=== PATIENT | female | born 1980 | race American Indian/Alaskan Native ===

== ENCOUNTER 2017-10-24 08:07 | Inpatient (IN) | payer OTHER ==
[2017-10-24 08:50] LABS: Basophils # (Auto) 0.1 K/mm3 (0.0-0.1); Basophils % (Auto) 0.9 % (0.0-1.8); Eosinophils # (Auto) 0.1 K/mm3 (0.0-0.4); Eosinophils % (Auto) 1.2 % (0.0-4.3); Hematocrit 38.6 % (30.3-42.9); Hemoglobin 13.6 gm/dl (10.1-14.3); Lymphocytes # (Auto) 1.6 K/mm3 (1.2-5.4); Lymphocytes % (Auto) 17.8 % (13.4-35.0); Mean Corpuscular HGB Conc 35 % (30-34); Mean Corpuscular Hemoglobin 36 pg (28-32); Mean Corpuscular Volume 102 fl (79-97); Monocytes # (Auto) 0.4 K/mm3 (0.0-0.8); Platelet Count 285 K/mm3 (140-440); Red Blood Count 3.78 M/mm3 (3.65-5.03); Red Cell Distribution Width 15.1 % (13.2-15.2)
[2017-10-24 09:10] LABS: Albumin 3.9 g/dL (3.9-5); BUN/Creatinine Ratio 13; Blood Urea Nitrogen 5 mg/dL (7-17); Calcium 9.1 mg/dL (8.4-10.2); Hemolysis Index 393
[2017-10-24 09:32] LABS: Alanine Aminotransferase < 5 units/L (7-56); Lipase 386 units/L (13-60)
[2017-10-24 10:07] LABS: Bacteria,Urine 1+ /HPF (Negative); Bilirubin,Urine NEG (Negative); Blood,Urine NEG (Negative); Color,Urine Amber (Yellow); Mucus,Urine 3+ /HPF; Urobilinogen,Urine < 2.0 mg/dL (<2.0)
[2017-10-24 10:08] LABS: HCG Qualitative,Urine Negative (Negative); Protein,Urine >500 mg/dL (Negative)
--- NOTE | 2017-10-24 10:32 | XRay Report ---
Chest 2 views: History: Shortness of breath, chest pain. Findings: Normal cardiomediastinal silhouette. Trachea is midline. No consolidation, pneumothorax or pleural effusion. Impression: No acute cardiopulmonary findings
[2017-10-24] MEDS ORDERED: NACL 0.9% 1000 ML 1,000 ML IV ONE (10:49)
[2017-10-24] MEDS ORDERED: TORADOL IV ONE (10:49)
[2017-10-24] MEDS ORDERED: ZOFRAN IV ONE (10:49)
[2017-10-24] MEDS ORDERED: NACL 0.9% 500 ML 500 ML IV ONE (10:49)
[2017-10-24] MEDS ORDERED: DILAUDID IV ONE ×2 (10:49→12:41)
--- NOTE | 2017-10-24 10:49 | Emergency Department Report ---
ED Abdominal Pain HPI - General Chief Complaint: Dyspnea/Respdistress Stated Complaint: CHEST PAIN WITH TIGHTNESS Time Seen by Provider: 10/24/17 10:32 Source: patient Mode of arrival: Ambulatory Limitations: No Limitations - History of Present Illness Initial Comments: Patient is a 37-year-old female presenting with epigastric pain. Patient states that the pain is 7 out of 10 in severity and feels like a tight sensation around her upper abdomen and radiates to her back. Patient has had nausea vomiting associated with this pain. Patient also has had several episodes of diarrhea as well. Patient states has been no blood in her emesis or stools. Patient denies any fevers chills at this time. Patient states she has no history of biliary colic, but is a drinker. These are risk factors for pancreatitis. Patient states she drinks anywhere from 3-6 beers daily. - Related Data Allergies Allergy/AdvReac Type Severity Reaction Status Date / Time Fish Containing Products Allergy Hives Verified 10/24/17 08:26 ED Review of Systems ROS: Stated complaint: CHEST PAIN WITH TIGHTNESS Other details as noted in HPI Comment: All other systems reviewed and negative ED Past Medical Hx - Past Medical History Previous Medical History?: Yes Additional medical history: Vaginal delivery x 2 - Surgical History Past Surgical History?: Yes Additional Surgical History: x 2 - Social History Smoking Status: Current Every Day Smoker Substance Use Type: Alcohol, Non Opiate Pain ED Physical Exam - General Limitations: No Limitations General appearance: alert, in no apparent distress - Head Head exam: Present: atraumatic, normocephalic - Eye Eye exam: Present: normal appearance - ENT ENT exam: Present: mucous membranes moist - Neck Neck exam: Present: normal inspection - Respiratory Respiratory exam: Present: normal lung sounds bilaterally. Absent: respiratory distress, wheezes, rales, rhonchi - Cardiovascular Cardiovascular Exam: Present: regular rate, normal rhythm. Absent: systolic murmur, diastolic murmur, rubs, gallop - GI/Abdominal GI/Abdominal exam: Present: soft, tenderness (epigastric tenderness), normal bowel sounds. Absent: distended, guarding, rebound, rigid - Extremities Exam Extremities exam: Present: normal inspection - Back Exam Back exam: Present: normal inspection - Neurological Exam Neurological exam: Present: alert, oriented X3 - Psychiatric Psychiatric exam: Present: normal affect, normal mood - Skin Skin exam: Present: warm, dry, intact, normal color. Absent: rash ED Course Vital Signs 10/24/17 10/24/17 08:26 11:00 Temperature 98.8 F Pulse Rate 107 H Respiratory 20 16 Rate Blood Pressure 146/90 O2 Sat by Pulse 98 Oximetry ED Medical Decision Making - Lab Data Result diagrams: 10/24/17 08:37 10/24/17 08:37 Lab Results 10/24/17 10/24/17 10/24/17 Range/Units 08:37 08:37 09:25 WBC 8.8 (4.5-11.0) K/mm3 RBC 3.78 (3.65-5.03) M/mm3 Hgb 13.6 (10.1-14.3) gm/dl Hct 38.6 (30.3-42.9) % MCV 102 H (79-97) fl MCH 36 H (28-32) pg MCHC 35 H (30-34) % RDW 15.1 (13.2-15.2) % Plt Count 285 (140-440) K/mm3 Lymph % (Auto) 17.8 (13.4-35.0) % [place] % (Auto) 5.0 (0.0-7.3) % Eos % (Auto) 1.2 (0.0-4.3) % Baso % (Auto) 0.9 (0.0-1.8) % Lymph # 1.6 (1.2-5.4) K/mm3 [place] # 0.4 (0.0-0.8) K/mm3 Eos # 0.1 (0.0-0.4) K/mm3 Baso # 0.1 (0.0-0.1) K/mm3 Seg Neutrophils % 75.1 H (40.0-70.0) % Seg Neutrophils # 6.6 (1.8-7.7) K/mm3 Sodium 126 L (137-145) mmol/L Potassium 5.4 H (3.6-5.0) mmol/L Chloride 87.8 L (98-107) mmol/L Carbon Dioxide 22 (22-30) mmol/L Anion Gap 22 mmol/L BUN 5 L (7-17) mg/dL Creatinine 0.4 L (0.7-1.2) mg/dL Estimated GFR > 60 ml/min BUN/Creatinine Ratio 13 % Glucose 136 H (65-100) mg/dL Calcium 9.1 (8.4-10.2) mg/dL Total Bilirubin 0.90 (0.1-1.2) mg/dL AST 102 H (5-40) units/L ALT < 5 L (7-56) units/L Alkaline Phosphatase 68 (35-129) units/L Total Protein 8.3 H (6.3-8.2) g/dL Albumin 3.9 (3.9-5) g/dL Albumin/Globulin Ratio 0.9 % Lipase 386 H (13-60) units/L Urine Color Janie (Yellow) Urine Turbidity Cloudy (Clear) Urine pH 5.0 (5.0-7.0) Ur Specific [place] 1.032 H (1.003-1.030) Urine Protein >500 (Negative) mg/dL Urine Glucose (UA) Neg (Negative) mg/dL Urine Ketones Neg (Negative) mg/dL Urine Blood Neg (Negative) Urine Nitrite Neg (Negative) Urine Bilirubin Neg (Negative) Urine Urobilinogen < 2.0 (<2.0) mg/dL Ur Leukocyte Esterase Mod (Negative) Urine WBC (Auto) 79.0 H (0.0-6.0) /HPF Urine RBC (Auto) 5.0 (0.0-6.0) /HPF U Epithel Cells (Auto) 18.0 H (0-13.0) /HPF Urine Bacteria (Auto) 1+ (Negative) /HPF Urine Mucus 3+ /HPF Urine HCG, Qual Negative (Negative) - Medical Decision Making Patient was given IV fluids and pain meds. Patient be admitted to the hospitalist service under Dr. Delatorre. ET of abdomen and pelvis is pending at the time of admission. Critical care attestation.: If time is entered above; I have spent that time in minutes in the direct care of this critically ill patient, excluding procedure time. ED Disposition Clinical Impression: Acute pancreatitis Qualifiers: Pancreatitis type: unspecified pancreatitis type Acute pancreatitis complication: no infection or necrosis Qualified Code(s): K85.90 - Acute pancreatitis without necrosis or infection, unspecified Disposition: DC- TO HOME OR SELFCARE Is pt being admited?: Yes Does the pt Need Aspirin: No Condition: Stable Referrals: PRIMARY CARE, [Primary Care Provider] - 3-5 Days
--- NOTE | 2017-10-24 13:07 | Cat Scan Report ---
FINAL REPORT EXAM: CT ABDOMEN PELVIS W CON HISTORY: elevated lipase, abd pain TECHNIQUE: CT examination of the ABDOMEN after IV contrast CT examination of the PELVIS after IV contrast PRIORS: None. FINDINGS: 5.7 mm pulmonary nodule in the right lower lobe laterally, series 2, image 4. 4.1 mm pulmonary nodule in the right lower lobe base along the diaphragm, series 2, image 22 3.8 mm pulmonary nodule in the posteromedial left lower lobe subpleural region, series 2, image 31. Nonspecific diffusely decreased density of liver parenchyma may reflect fatty infiltration. No visualized focal liver lesion. Normal-appearing gallbladder, adrenals, and spleen. Intact normal caliber abdominal aorta and IVC. Normal-appearing kidneys and visible ureters. Moderate fluid and fat stranding is noted adjacent to pancreatic uncinate process and head. Slight heterogeneous enhancement is noted in this region of the pancreas. Findings are most compatible with acute pancreatitis. Slight retroperitoneal free fluid posterior to the pancreas and in the right upper quadrant. Pancreatic parenchymal body and tail appear normal. No definite visible pancreatic mass. No definite pancreatic ductal dilatation or calculus. Small fat containing umbilical hernia. No retroperitoneal adenopathy. No mesenteric mass. Slight thickening of the descending and transverse duodenum likely reactive from adjacent inflammation. No small bowel distention in the abdomen and pelvis. Slight pelvic free fluid may be reactive related to suggestion pancreatitis. Normal-appearing uterus and adnexa. Dominant follicle in right ovary. No definite urinary bladder or rectal abnormality. Normal-appearing sigmoid colon. No evidence of free air or colonic distention. Normal-appearing cecum and terminal ileum. Appendix not visible. No pericecal inflammation. Nonspecific nodule in the right parasagittal perineum measures 3.5 cm. This may be solid or complex cyst. It may be palpable clinically. IMPRESSION: Bilateral pulmonary nodules. Recommend followup chest CT to fully evaluate both lungs and exclude other lung nodules Nonspecific 3.5 cm nodule in the right parasagittal perineum may be solid or complex cyst. It may be palpable clinically. Correlate with clinical exam Findings most compatible with acute pancreatitis. Duodenal mural thickening is likely reactive from adjacent inflammatory change. Slight pelvic free fluid is likely reactive Small fat containing umbilical hernia
[2017-10-24] MEDS: NACL 0.9% 1000 ML 1,000 ML IV SCH ×2 (13:39→21:29)
[2017-10-24] MEDS: MORPHINE IV PRN ×3 (14:53→21:20)
[2017-10-24] MEDS ORDERED: RESTORIL PO ONE (23:22)
[2017-10-25] MEDS ORDERED: TYLENOL PO PRN (00:13)
--- NOTE | 2017-10-25 00:13 | History and Physical Report ---
History of Present Illness Date of examination: 10/24/17 Date of admission: 10/24/17 12:44 Chief complaint: Chief complaint: Severe abdominal pain for 2 days History of present illness: History of Present Illnesss: Patient is a 37-year-old female presenting with epigastric pain. Patient states that the pain is 7 out of 10 in severity and feels like a tight sensation around her upper abdomen and radiates to her back. Patient has had nausea vomiting associated with this pain. Patient vomited about 7 times each last few days. Patient also has had several episodes of diarrhea as well. Patient states has been no blood in her emesis or stools. Patient denies any fevers chills at this time. Patient states she has no history of biliary colic , but is a drinker. These are risk factors for pancreatitis. Patient states she drinks anywhere from 3-6 beers daily. Past Medical History Previous Medical History?: Yes Additional medical history: Vaginal delivery x 2 - Surgical History Past Surgical History?: Yes Additional Surgical History: x 2 - Social History Smoking Status: Current Every Day Smoker Substance Use Type: Alcohol, Non Opiate Pain Family history Hypertension Review of Systems ROS: Stated complaint: Abdominal pain with tightness Other details as noted in HPI Comment: All other systems reviewed and negative Medications and Allergies Allergies Allergy/AdvReac Type Severity Reaction Status Date / Time Fish Containing Products Allergy Hives Verified 10/24/17 08:26 Home Medications Medication Instructions Recorded Confirmed Last Taken Type No Known Home Medications [No 10/24/17 10/24/17 Unknown History Reported Home Medications] Active Meds: Active Medications Sodium Chloride (Nacl 0.9% 1000 Ml) 1,000 mls @ 125 mls/hr IV DIRECT RUSSELL Last Admin: 10/24/17 21:29 Dose: 125 mls/hr Morphine Sulfate (Morphine) 4 mg IV Q3H PRN PRN Reason: Pain, Moderate (4-6) Last Admin: 10/24/17 21:20 Dose: 4 mg Exam - Constitutional Vitals: Temp Pulse Resp BP Pulse Ox 99.6 F 104 H 20 132/83 98 10/24/17 21:21 10/24/17 21:21 10/24/17 21:50 10/24/17 21:21 10/24/17 21:21 General appearance: Present: no acute distress, well-nourished - EENT Eyes: Present: PERRL ENT: hearing intact, clear oral mucosa - Neck Neck: Present: supple, normal ROM - Respiratory Respiratory effort: normal Respiratory: bilateral: CTA - Cardiovascular Heart rate: 80 Rhythm: regular Heart Sounds: Present: S1 & S2. Absent: rub, click - Extremities Extremities: no ischemia, pulses intact, pulses symmetrical, No edema Peripheral Pulses: within normal limits - Abdominal General gastrointestinal: Present: soft, non-tender, non-distended, normal bowel sounds Localized gastrointestinal: tender: diffuse, guarding: diffuse, rebound: diffuse Female genitourinary: Present: normal - Rectal Rectal Exam: deferred - Integumentary Integumentary: Present: clear, warm, dry - Musculoskeletal Musculoskeletal: gait normal, strength equal bilaterally - Psychiatric Psychiatric: appropriate mood/affect, intact judgment & insight - Neurologic Neurologic: CNII-XII intact, moves all extremities - Allied Health Allied health notes reviewed: nursing, case management Results - Labs CBC & Chem 7: 10/24/17 08:37 10/24/17 08:37 Labs: Laboratory Last Values WBC 8.8 K/mm3 (4.5-11.0) 10/24/17 08:37 RBC 3.78 M/mm3 (3.65-5.03) 10/24/17 08:37 Hgb 13.6 gm/dl (10.1-14.3) 10/24/17 08:37 Hct 38.6 % (30.3-42.9) 10/24/17 08:37 MCV 102 fl (79-97) H 10/24/17 08:37 MCH 36 pg (28-32) H 10/24/17 08:37 MCHC 35 % (30-34) H 10/24/17 08:37 RDW 15.1 % (13.2-15.2) 10/24/17 08:37 Plt Count 285 K/mm3 (140-440) 10/24/17 08:37 Lymph % (Auto) 17.8 % (13.4-35.0) 10/24/17 08:37 [place] % (Auto) 5.0 % (0.0-7.3) 10/24/17 08:37 Eos % (Auto) 1.2 % (0.0-4.3) 10/24/17 08:37 Baso % (Auto) 0.9 % (0.0-1.8) 10/24/17 08:37 Lymph # 1.6 K/mm3 (1.2-5.4) 10/24/17 08:37 [place] # 0.4 K/mm3 (0.0-0.8) 10/24/17 08:37 Eos # 0.1 K/mm3 (0.0-0.4) 10/24/17 08:37 Baso # 0.1 K/mm3 (0.0-0.1) 10/24/17 08:37 Seg Neutrophils % 75.1 % (40.0-70.0) H 10/24/17 08:37 Seg Neutrophils # 6.6 K/mm3 (1.8-7.7) 10/24/17 08:37 Sodium 126 mmol/L (137-145) L 10/24/17 08:37 Potassium 5.4 mmol/L (3.6-5.0) H 10/24/17 08:37 Chloride 87.8 mmol/L (98-107) L 10/24/17 08:37 Carbon Dioxide 22 mmol/L (22-30) 10/24/17 08:37 Anion Gap 22 mmol/L 10/24/17 08:37 BUN 5 mg/dL (7-17) L 10/24/17 08:37 Creatinine 0.4 mg/dL (0.7-1.2) L 10/24/17 08:37 Estimated GFR > 60 ml/min 10/24/17 08:37 BUN/Creatinine Ratio 13 % 10/24/17 08:37 Glucose 136 mg/dL (65-100) H 10/24/17 08:37 Calcium 9.1 mg/dL (8.4-10.2) 10/24/17 08:37 Total Bilirubin 0.90 mg/dL (0.1-1.2) 10/24/17 08:37 AST 102 units/L (5-40) H 10/24/17 08:37 ALT < 5 units/L (7-56) L 10/24/17 08:37 Alkaline Phosphatase 68 units/L (35-129) 10/24/17 08:37 Total Protein 8.3 g/dL (6.3-8.2) H 10/24/17 08:37 Albumin 3.9 g/dL (3.9-5) 10/24/17 08:37 Albumin/Globulin Ratio 0.9 % 10/24/17 08:37 Lipase 386 units/L (13-60) H 10/24/17 08:37 Urine Color Janie (Yellow) 10/24/17 09:25 Urine Turbidity Cloudy (Clear) 10/24/17 09:25 Urine pH 5.0 (5.0-7.0) 10/24/17 09:25 Ur Specific [place] 1.032 (1.003-1.030) H 10/24/17 09:25 Urine Protein >500 mg/dL (Negative) 10/24/17 09:25 Urine Glucose (UA) Neg mg/dL (Negative) 10/24/17:25 Urine Ketones Neg mg/dL (Negative) 10/24/17 09:25 Urine Blood Neg (Negative) 10/24/17 09:25 Urine Nitrite Neg (Negative) 10/24/17 09:25 Urine Bilirubin Neg (Negative) 10/24/17 09:25 Urine Urobilinogen < 2.0 mg/dL (<2.0) 10/24/17 09:25 Ur Leukocyte Esterase Mod (Negative) 10/24/17 09:25 Urine WBC (Auto) 79.0 /HPF (0.0-6.0) H 10/24/17 09:25 Urine RBC (Auto) 5.0 /HPF (0.0-6.0) 10/24/17 09:25 U Epithel Cells (Auto) 18.0 /HPF (0-13.0) H 10/24/17 09:25 Urine Bacteria (Auto) 1+ /HPF (Negative) 10/24/17 09:25 Urine Mucus 3+ /HPF 10/24/17 09:25 Urine HCG, Qual Negative (Negative) 10/24/17 09:25 - Imaging and Cardiology CT scan - abdomen: report reviewed Imaging and Cardiology: IMPRESSION: Bilateral pulmonary nodules. Recommend followup chest CT to fully evaluate both lungs and exclude other lung nodules Nonspecific 3.5 cm nodule in the right parasagittal perineum may be solid or complex cyst. It may be palpable clinically. Correlate with clinical exam Findings most compatible with acute pancreatitis. Duodenal mural thickening is likely reactive from adjacent inflammatory change. Slight pelvic free fluid is likely reactive Small fat containing umbilical hernia Assessment and Plan Advance Directives: Yes (full code) VTE prophylaxis?: Chemical Plan of care discussed with patient/family: Yes - Patient Problems (1) Acute pancreatitis Current Visit: Yes Status: Acute Qualifiers: Pancreatitis type: unspecified pancreatitis type Acute pancreatitis complication: no infection or necrosis Qualified Code(s): K85.90 - Acute pancreatitis without necrosis or infection, unspecified Plan to address problem: Possibly alcohol induced Will keep nothing by mouth IV morphine every 4 when necessary Pain management (2) Dehydration Current Visit: Yes Status: Acute Plan to address problem: Secondary to vomiting ---IV fluids for now (3) Hyponatremia Current Visit: Yes Status: Acute Plan to address problem: IV fluids D5 normal saline for now Hyponatremia probably secondary to vomiting (4) Hyperkalemia Current Visit: Yes Status: Acute Plan to address problem: Mild IV D5 normal saline for now Kayexalate etc. not given (5) Urinary tract infection Current Visit: Yes Status: Acute Qualifiers: Urinary tract infection type: acute cystitis Plan to address problem: IV Rocephin initiated (6) DVT prophylaxis Current Visit: Yes Status: Acute Plan to address problem: Heparin subcutaneous GI prophylaxis famotidine IV
[2017-10-25] MEDS: MORPHINE IV PRN ×5 (02:15→21:38)
[2017-10-25] MEDS: D5NS 1,000 ML IV SCH ×2 (02:16→16:40)
[2017-10-25] MEDS: SODIUM CHLORIDE FLUSH SYRINGE 10 ML IV PRN (02:31)
[2017-10-25] MEDS: PEPCID IV SCH ×3 (02:31→21:37)
[2017-10-25 09:43] LABS: Hematocrit 32.2 % (30.3-42.9); Hemoglobin 11.6 gm/dl (10.1-14.3); Mean Corpuscular HGB Conc 36 % (30-34); Mean Corpuscular Hemoglobin 37 pg (28-32); Mean Corpuscular Volume 102 fl (79-97); Platelet Count 187 K/mm3 (140-440); Red Blood Count 3.17 M/mm3 (3.65-5.03); Red Cell Distribution Width 14.4 % (13.2-15.2)
[2017-10-25 09:58] LABS: BUN/Creatinine Ratio 6; Blood Urea Nitrogen 3 mg/dL (7-17); Calcium 7.4 mg/dL (8.4-10.2); Hemolysis Index 10
[2017-10-25] MEDS: cefTRIAXone 2 GM in NACL 0.9% 20 ML IV SCH (10:26)
[2017-10-25] MEDS: SODIUM CHLORIDE FLUSH SYRINGE 10 ML IV SCH ×2 (10:27→22:17)
--- NOTE | 2017-10-25 10:33 | Ultrasound Report ---
ULTRASOUND ABDOMEN LIMITED: TECHNIQUE: Transabdominal ultrasound with color Doppler interrogation. HISTORY: Pancreatitis, rule out gallstones. COMPARISON: CT abdomen pelvis with contrast performed 10/24. FINDINGS: LIVER: There is mild diffuse fatty infiltration throughout the liver. No focal liver mass. BILIARY SYSTEM: No evidence for shadowing gallstones or biliary dilatation. Trace gallbladder sludge is identified. PANCREAS: The visualized pancreas is within normal limits. The tail was obscured. RIGHT KIDNEY: Normal. PROXIMAL AORTA: Normal. ASCITES: Trace ascites. IMPRESSION: Trace gallbladder sludge is suspected. No gallstones are identified. Fatty infiltration of the liver. Trace ascites.
[2017-10-25] MEDS: ZOFRAN IV PRN (10:40)
[2017-10-25] MEDS: NACL 0.9% 1000 ML 1,000 ML IV SCH (10:40)
--- NOTE | 2017-10-25 11:49 | Consultation ---
History of Present Illness Consult date: 10/25/17 Requesting physician: HOWARD BANERJEE Chief complaint: abd pain - History of present illness History of present illness: 37 yo F with no PMhx presents to ER with c/o 1 week of epigastric abd pain. The pain radiates from the epigastrum to b/l Upper quadrants and to the back. She has tried tylenol for the pain but this did not help. The pain has gradually gotten worse and so she came to the ER. This has been associated with multiple episodes of nonbloody/nonbilious emesis. Also c/o diarrhea. She has never had pain like this before. She denies f/c, cp ,sob, dysuria. She denies sick contacts, recent travel, any new medications, or eating anything out of the ordinary. She does admit to drinking a 6 pack of beer per day with her and wine occasionally. Past History Past Medical History: No medical history Past Surgical History: appendectomy, (x2), Other (cyst removal) Social history: alcohol abuse (6 pack of beer per day, occassional wine), full code. denies: smoking, IV drug use Family history: cancer, diabetes Medications and Allergies Allergies Allergy/AdvReac Type Severity Reaction Status Date / Time Fish Containing Products Allergy Hives Verified 10/24/17 08:26 Home Medications Medication Instructions Recorded Confirmed Last Taken Type No Known Home Medications [No 10/24/17 10/24/17 Unknown History Reported Home Medications] Active Meds: Active Medications Acetaminophen (Tylenol) 650 mg PO Q4H PRN PRN Reason: Pain MILD(1-3)/Fever >100.5/CM Famotidine (Pepcid) 20 mg IV BID RUSSELL Last Admin: 10/25/17 10:27 Dose: 20 mg Sodium Chloride (Nacl 0.9% 1000 Ml) 1,000 mls @ 125 mls/hr IV DIRECT RUSSELL Last Admin: 10/25/17 10:40 Dose: 125 mls/hr Dextrose/Sodium Chloride (D5ns) 1,000 mls @ 150 mls/hr IV DIRECT RUSSELL Last Admin: 10/25/17 02:16 Dose: 100 mls/hr Ceftriaxone Sodium 2 gm/ (Sodium Chloride) 20 mls @ 20 mls/10 min IV Q24HR RUSSELL ; Protocol Last Admin: 10/25/17 10:26 Dose: 20 mls/10 min Morphine Sulfate (Morphine) 4 mg IV Q4H PRN PRN Reason: Pain, Moderate (4-6) Last Admin: 10/25/17 07:36 Dose: 4 mg Ondansetron HCl (Zofran) 4 mg IV Q8H PRN PRN Reason: Nausea And Vomiting Last Admin: 10/25/17 10:40 Dose: 4 mg Sodium Chloride (Sodium Chloride Flush Syringe 10 Ml) 10 ml IV BID RUSSELL Last Admin: 10/25/17 10:27 Dose: 10 ml Sodium Chloride (Sodium Chloride Flush Syringe 10 Ml) 10 ml IV PRN PRN PRN Reason: LINE FLUSH Last Admin: 10/25/17 02:31 Dose: 10 ml Review of Systems All systems: negative (10 point ROS performed and negative except for that listed in HPI) Exam Vital Signs Temp Pulse Resp BP Pulse Ox 98.8 F 107 H 20 146/90 98 10/24/17 08:26 10/24/17 08:26 10/24/17 08:26 10/24/17 08:26 10/24/17 08:26 Narrative exam: Gen: AAOx3. NAD ENT: no scleral icterus or conjunctival pallor CV: S1, S2+ Resp: even and unlabored Abd: soft, ND, + TTP in epigastrum, RUQ, periumbilical. No r/r/g Ext: no c/c/e Results - Labs 10/25/17 09:20 10/25/17 09:20 Abnormal lab results 10/25/17 10/25/17 Range/Units 09:20 09:20 RBC 3.17 L (3.65-5.03) M/mm3 MCV 102 H (79-97) fl MCH 37 H (28-32) pg MCHC 36 H (30-34) % Sodium 136 L D (137-145) mmol/L Potassium 3.1 L D (3.6-5.0) mmol/L BUN 3 L (7-17) mg/dL Creatinine 0.5 L (0.7-1.2) mg/dL Glucose 111 H (65-100) mg/dL Calcium 7.4 L D (8.4-10.2) mg/dL Diabetes panel 10/25/17 10/25/17 Range/Units 00:28 09:20 Sodium 136 L D (137-145) mmol/L Potassium 3.1 L D (3.6-5.0) mmol/L Chloride 99.5 (98-107) mmol/L Carbon Dioxide 24 (22-30) mmol/L BUN 3 L (7-17) mg/dL Creatinine 0.5 L (0.7-1.2) mg/dL Glucose 111 H (65-100) mg/dL Hemoglobin A1c 5.1 (4-6) % Calcium 7.4 L D (8.4-10.2) mg/dL Calcium panel 10/25/17 Range/Units 09:20 Calcium 7.4 L D (8.4-10.2) mg/dL Pituitary panel 10/25/17 Range/Units 09:20 Sodium 136 L D (137-145) mmol/L Potassium 3.1 L D (3.6-5.0) mmol/L Chloride 99.5 (98-107) mmol/L Carbon Dioxide 24 (22-30) mmol/L BUN 3 L (7-17) mg/dL Creatinine 0.5 L (0.7-1.2) mg/dL Glucose 111 H (65-100) mg/dL Calcium 7.4 L D (8.4-10.2) mg/dL Adrenal panel 10/25/17 Range/Units 09:20 Sodium 136 L D (137-145) mmol/L Potassium 3.1 L D (3.6-5.0) mmol/L Chloride 99.5 (98-107) mmol/L Carbon Dioxide 24 (22-30) mmol/L BUN 3 L (7-17) mg/dL Creatinine 0.5 L (0.7-1.2) mg/dL Glucose 111 H (65-100) mg/dL Calcium 7.4 L D (8.4-10.2) mg/dL Assessment and Plan 37 yo F with acute pancreatitis likely etoh induced 1. Abd u/s reviewed - no gallstones 2. prn pain control 3. prn nausea control 4. IVF - increase to 150cc/hr 5. trend lipase, amylase 6. on abx presumably for UTI, does not need abx for pancreatitis 7. NPO for now 8. serial abd exams Thank you for this consultation, please call with questions or concerns.
--- NOTE | 2017-10-25 14:13 | Progress Note ---
Assessment and Plan Assessment and plan: Acute pancreatitis. NPO, Morphine UTI. 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 Physical - Physical exam Narrative exam: General:Not in acute distress, lying in bed,obese HEENT:Normocephalic, atraumatic Neck:supple,no JVD Lungs: Clear to auscultation, no rales, no wheeze Heart:S1 and S2 regular, no murmurs, rubs or gallop Abd: soft, non tender,non distended, normal bowel sounds Ext:no edema, no clubbing or cyanosis Neuro:Awake,alert,oriented x 3, moves all extremities, Psych:normal mood - Constitutional Vitals: Temp Pulse Resp BP Pulse Ox 99.6 F 104 H 20 132/83 98 10/24/17 21:21 10/24/17 21:21 10/25/17 07:36 10/24/17 21:21 10/24/17 21:21 General appearance: Present: no acute distress, well-nourished Results - Labs CBC & Chem 7: 10/26/17 04:47 10/26/17 04:47 Labs: Laboratory Last Values WBC 6.6 K/mm3 (4.5-11.0) 10/25/17 09:20 RBC 3.17 M/mm3 (3.65-5.03) L 10/25/17 09:20 Hgb 11.6 gm/dl (10.1-14.3) 10/25/17 09:20 Hct 32.2 % (30.3-42.9) D 10/25/17 09:20 MCV 102 fl (79-97) H 10/25/17 09:20 MCH 37 pg (28-32) H 10/25/17 09:20 MCHC 36 % (30-34) H 10/25/17 09:20 RDW 14.4 % (13.2-15.2) 10/25/17 09:20 Plt Count 187 K/mm3 (140-440) 10/25/17 09:20 Lymph % (Auto) 17.8 % (13.4-35.0) 10/24/17 08:37 [place] % (Auto) 5.0 % (0.0-7.3) 10/24/17 08:37 Eos % (Auto) 1.2 % (0.0-4.3) 10/24/17 08:37 Baso % (Auto) 0.9 % (0.0-1.8) 10/24/17 08:37 Lymph # 1.6 K/mm3 (1.2-5.4) 10/24/17 08:37 [place] # 0.4 K/mm3 (0.0-0.8) 10/24/17 08:37 Eos # 0.1 K/mm3 (0.0-0.4) 10/24/17 08:37 Baso # 0.1 K/mm3 (0.0-0.1) 10/24/17 08:37 Seg Neutrophils % 75.1 % (40.0-70.0) H 10/24/17 08:37 Seg Neutrophils # 6.6 K/mm3 (1.8-7.7) 10/24/17 08:37 Sodium 136 mmol/L (137-145) L D 10/25/17 09:20 Potassium 3.1 mmol/L (3.6-5.0) L D 10/25/17 09:20 Chloride 99.5 mmol/L (98-107) 10/25/17 09:20 Carbon Dioxide 24 mmol/L (22-30) 10/25/17 09:20 Anion Gap 16 mmol/L 10/25/17 09:20 BUN 3 mg/dL (7-17) L 10/25/17 09:20 Creatinine 0.5 mg/dL (0.7-1.2) L 10/25/17 09:20 Estimated GFR > 60 ml/min 10/25/17 09:20 BUN/Creatinine Ratio 6 % 10/25/17 09:20 Glucose 111 mg/dL (65-100) H 10/25/17 09:20 Hemoglobin A1c 5.1 % (4-6) 10/25/17 00:28 Calcium 7.4 mg/dL (8.4-10.2) L D 10/25/17 09:20 Total Bilirubin 0.90 mg/dL (0.1-1.2) 10/24/17 08:37 AST 102 units/L (5-40) H 10/24/17 08:37 ALT < 5 units/L (7-56) L 10/24/17 08:37 Alkaline Phosphatase 68 units/L (35-129) 10/24/17 08:37 Total Protein 8.3 g/dL (6.3-8.2) H 10/24/17 08:37 Albumin 3.9 g/dL (3.9-5) 10/24/17 08: Albumin/Globulin Ratio 0.9 % 10/24/17 08:37 Lipase 386 units/L (13-60) H 10/24/17 08:37 Urine Color Janie (Yellow) 10/24/17: Urine Turbidity Cloudy (Clear) 10/24/17: Urine pH 5.0 (5.0-7.0) 10/24/17: Ur Specific [place] 1.032 (1.003-1.030) H 10/24/17: Urine Protein >500 mg/dL (Negative) 10/24/17: Urine Glucose (UA) Neg mg/dL (Negative) 10/24/17: Urine Ketones Neg mg/dL (Negative) 10/24/17: Urine Blood Neg (Negative) 10/24/17: Urine Nitrite Neg (Negative) 10/24/17: Urine Bilirubin Neg (Negative) 10/24/17: Urine Urobilinogen < 2.0 mg/dL (<2.0) 10/24/17: Ur Leukocyte Esterase Mod (Negative) 10/24/17:25 Urine WBC (Auto) 79.0 /HPF (0.0-6.0) H 10/24/17:25 Urine RBC (Auto) 5.0 /HPF (0.0-6.0) 10/24/17: U Epithel Cells (Auto) 18.0 /HPF (0-13.0) H 10/24/17:25 Urine Bacteria (Auto) 1+ /HPF (Negative) 10/24/17: Urine Mucus 3+ /HPF 10/24/17: Urine HCG, Qual Negative (Negative) 10/24/17:
[2017-10-25] MEDS: KCL 10MEQ/100ML 10 MEQ/100 ML BAG IV SCH ×5 (16:53→20:24)
[2017-10-25] MEDS: AMBIEN PO PRN (23:09)
[2017-10-26 05:12] LABS: Basophils % (Auto) 0.5 % (0.0-1.8); Eosinophils # (Auto) 0.3 K/mm3 (0.0-0.4); Eosinophils % (Auto) 5.2 % (0.0-4.3); Hematocrit 30.1 % (30.3-42.9); Hemoglobin 10.5 gm/dl (10.1-14.3); Lymphocytes # (Auto) 1.3 K/mm3 (1.2-5.4); Lymphocytes % (Auto) 19.6 % (13.4-35.0); Mean Corpuscular HGB Conc 35 % (30-34); Mean Corpuscular Hemoglobin 36 pg (28-32); Mean Corpuscular Volume 103 fl (79-97); Monocytes # (Auto) 0.4 K/mm3 (0.0-0.8); Monocytes % (Auto) 6.7 % (0.0-7.3); Platelet Count 177 K/mm3 (140-440); Red Blood Count 2.93 M/mm3 (3.65-5.03); Red Cell Distribution Width 14.8 % (13.2-15.2)
[2017-10-26] MEDS: MORPHINE IV PRN ×5 (05:14→23:42)
[2017-10-26 05:30] LABS: Alanine Aminotransferase 7 units/L (7-56); Albumin 2.9 g/dL (3.9-5); Calcium 7.5 mg/dL (8.4-10.2); Hemolysis Index 4; Lipase 61 units/L (13-60)
[2017-10-26 05:37] LABS: BUN/Creatinine Ratio 2; Blood Urea Nitrogen < 1 mg/dL (7-17)
--- NOTE | 2017-10-26 08:56 | Progress Note ---
Hospitalist Physical - Constitutional Vitals: Temp Pulse Resp BP Pulse Ox 99.1 F 91 H 16 108/75 98 10/26/17 07:27 10/26/17 07:27 10/26/17 07:27 10/26/17 07:27 10/26/17 07:27 General appearance: Present: no acute distress, well-nourished Results - Labs CBC & Chem 7: 10/26/17 04:47 10/26/17 04:47 Labs: Laboratory Last Values WBC 6.4 K/mm3 (4.5-11.0) 10/26/17 04:47 RBC 2.93 M/mm3 (3.65-5.03) L 10/26/17 04:47 Hgb 10.5 gm/dl (10.1-14.3) 10/26/17 04:47 Hct 30.1 % (30.3-42.9) L 10/26/17 04:47 MCV 103 fl (79-97) H 10/26/17 04:47 MCH 36 pg (28-32) H 10/26/17 04:47 MCHC 35 % (30-34) H 10/26/17 04:47 RDW 14.8 % (13.2-15.2) 10/26/17 04:47 Plt Count 177 K/mm3 (140-440) 10/26/17 04:47 Lymph % (Auto) 19.6 % (13.4-35.0) 10/26/17 04:47 [place] % (Auto) 6.7 % (0.0-7.3) 10/26/17 04:47 Eos % (Auto) 5.2 % (0.0-4.3) H 10/26/17 04:47 Baso % (Auto) 0.5 % (0.0-1.8) 10/26/17 04:47 Lymph # 1.3 K/mm3 (1.2-5.4) 10/26/17 04:47 [place] # 0.4 K/mm3 (0.0-0.8) 10/26/17 04:47 Eos # 0.3 K/mm3 (0.0-0.4) 10/26/17 04:47 Baso # 0.0 K/mm3 (0.0-0.1) 10/26/17 04:47 Seg Neutrophils % 68.0 % (40.0-70.0) 10/26/17 04:47 Seg Neutrophils # 4.4 K/mm3 (1.8-7.7) 10/26/17 04:47 Sodium 141 mmol/L (137-145) 10/26/17 04:47 Potassium 3.2 mmol/L (3.6-5.0) L 10/26/17 04:47 Chloride 103.2 mmol/L (98-107) 10/26/17 04:47 Carbon Dioxide 23 mmol/L (22-30) 10/26/17 04:47 Anion Gap 18 mmol/L 10/26/17 04:47 BUN < 1 mg/dL (7-17) L 10/26/17 04:47 Creatinine 0.5 mg/dL (0.7-1.2) L 10/26/17 04:47 Estimated GFR > 60 ml/min 10/26/17 04:47 BUN/Creatinine Ratio 2 % 10/26/17 04:47 Glucose 113 mg/dL (65-100) H 10/26/17 04:47 Hemoglobin A1c 5.1 % (4-6) 10/25/17 00:28 Calcium 7.5 mg/dL (8.4-10.2) L 10/26/17 04:47 Total Bilirubin 0.70 mg/dL (0.1-1.2) 10/26/17 04:47 AST 17 units/L (5-40) 10/26/17 04:47 ALT 7 units/L (7-56) 10/26/17 04:47 Alkaline Phosphatase 55 units/L (35-129) 10/26/17 04:47 Total Protein 6.2 g/dL (6.3-8.2) L D 10/26/17 04:47 Albumin 2.9 g/dL (3.9-5) L 10/26/17 04:47 Albumin/Globulin Ratio 0.9 % 10/26/17 04:47 Amylase 47 units/L (27-131) 10/26/17 04:47 Lipase 61 units/L (13-60) H 10/26/17 04:47 Urine Color Janie (Yellow) 10/24/17 09:25 Urine Turbidity Cloudy (Clear) 10/24/17 09:25 Urine pH 5.0 (5.0-7.0) 10/24/17: Ur Specific [place] 1.032 (1.003-1.030) H 10/24/17: Urine Protein >500 mg/dL (Negative) 10/24/17: Urine Glucose (UA) Neg mg/dL (Negative) 10/24/17: Urine Ketones Neg mg/dL (Negative) 10/24/17 Urine Blood Neg (Negative) 10/24/17 Urine Nitrite Neg (Negative) 10/24/17 Urine Bilirubin Neg (Negative) 10/24/17: Urine Urobilinogen < 2.0 mg/dL (<2.0) 10/24/17: Ur Leukocyte Esterase Mod (Negative) 10/24/17: Urine WBC (Auto) 79.0 /HPF (0.0-6.0) H 10/24/17: Urine RBC (Auto) 5.0 /HPF (0.0-6.0) 10/24/17: U Epithel Cells (Auto) 18.0 /HPF (0-13.0) H 10/24/17: Urine Bacteria (Auto) 1+ /HPF (Negative) 10/24/17 Urine Mucus 3+ /HPF 10/24/17: Urine HCG, Qual Negative (Negative) 10/24/17
[2017-10-26] MEDS: PEPCID IV SCH ×2 (09:00→23:00)
[2017-10-26] MEDS: ZOFRAN IV PRN ×2 (10:31→23:24)
[2017-10-26] MEDS: cefTRIAXone 2 GM in NACL 0.9% 20 ML IV SCH (10:34)
[2017-10-26] MEDS: SODIUM CHLORIDE FLUSH SYRINGE 10 ML IV SCH ×2 (10:35→23:00)
--- NOTE | 2017-10-26 10:50 | Progress Note ---
Assessment and Plan 37 yo F with acute pancreatitis likely etoh induced 1. Abd u/s reviewed - no gallstones 2. prn pain control - change to PO 3. prn nausea control 4. IVF - rate 5. lipase, LFTs improved. Calcium stable. 6. on abx presumably for UTI, does not need abx for pancreatitis 7. on full liquid diet per 1' -> adv diet slowly 8. patient counselled on abstaining from etoh use 9. replace K 10. ok for dc from surgery standpoint once pain is better, will sign off Thank you for this consultation, please call with questions or concerns. Subjective Date of service: 10/26/17 Narrative: Pt seen and examined. Feels better today. Abd pain is improved. No n/v. Has not had a BM . No f/c, cp, sob. Objective Vital Signs - 12hr 10/25/17 10/26/17 10/26/17 23:41 05:14 07:27 Temperature 99.4 F 99.1 F Pulse Rate 95 H 91 H Respiratory 18 20 16 Rate Blood Pressure 123/82 108/75 O2 Sat by Pulse 96 98 Oximetry - General physical appearance Narrative Exam: Gen: AAOx3. NAD CV: S1, S2+ Resp: even and unlabored Abd: soft, ND, + epigastric, and b/l UQ TTP, mild. No r/r/g Ext: no c/c/e - Labs 10/26/17 04:47 10/26/17 04:47 Diabetes panel 10/26/17 Range/Units 04:47 Sodium 141 (137-145) mmol/L Potassium 3.2 L (3.6-5.0) mmol/L Chloride 103.2 (98-107) mmol/L Carbon Dioxide 23 (22-30) mmol/L BUN < 1 L (7-17) mg/dL Creatinine 0.5 L (0.7-1.2) mg/dL Glucose 113 H (65-100) mg/dL Calcium 7.5 L (8.4-10.2) mg/dL AST 17 (5-40) units/L ALT 7 (7-56) units/L Alkaline Phosphatase 55 (35-129) units/L Total Protein 6.2 L D (6.3-8.2) g/dL Albumin 2.9 L (3.9-5) g/dL Calcium panel 10/26/17 Range/Units 04:47 Calcium 7.5 L (8.4-10.2) mg/dL Albumin 2.9 L (3.9-5) g/dL Pituitary panel 10/26/17 Range/Units 04:47 Sodium 141 (137-145) mmol/L Potassium 3.2 L (3.6-5.0) mmol/L Chloride 103.2 (98-107) mmol/L Carbon Dioxide 23 (22-30) mmol/L BUN < 1 L (7-17) mg/dL Creatinine 0.5 L (0.7-1.2) mg/dL Glucose 113 H (65-100) mg/dL Calcium 7.5 L (8.4-10.2) mg/dL Adrenal panel 10/26/17 Range/Units 04:47 Sodium 141 (137-145) mmol/L Potassium 3.2 L (3.6-5.0) mmol/L Chloride 103.2 (98-107) mmol/L Carbon Dioxide 23 (22-30) mmol/L BUN < 1 L (7-17) mg/dL Creatinine 0.5 L (0.7-1.2) mg/dL Glucose 113 H (65-100) mg/dL Calcium 7.5 L (8.4-10.2) mg/dL Total Bilirubin 0.70 (0.1-1.2) mg/dL AST 17 (5-40) units/L ALT 7 (7-56) units/L Alkaline Phosphatase 55 (35-129) units/L Total Protein 6.2 L D (6.3-8.2) g/dL Albumin 2.9 L (3.9-5) g/dL
[2017-10-26] MEDS ORDERED: K-DUR PO ONE (12:00)
[2017-10-26] MEDS: AMBIEN PO PRN (23:24)
[2017-10-26] MEDS: SODIUM CHLORIDE FLUSH SYRINGE 10 ML IV PRN (23:26)
[2017-10-27] MEDS: D5NS 1,000 ML IV SCH (00:53)
[2017-10-27] MEDS: MORPHINE IV PRN ×2 (05:43→09:43)
[2017-10-27 06:33] LABS: Calcium 7.5 mg/dL (8.4-10.2); Hemolysis Index 0
[2017-10-27 06:53] LABS: BUN/Creatinine Ratio 3; Blood Urea Nitrogen < 1 mg/dL (7-17)
[2017-10-27 08:45] VITALS: BP 134/92
[2017-10-27] MEDS ORDERED: K-DUR PO SCH (09:00)
--- NOTE | 2017-10-27 09:28 | Discharge Summary ---
Providers - Providers Date of Admission: 10/24/17 12:44 Date of discharge: 10/27/17 Attending physician: CYRIL BENNETT 10/25/17 00:13 Consult to Physician [CONS] Routine Comment: Consulting Provider: WINDY DARLING Physician Instructions: Reason For Exam: acute pancreatitis Primary care physician: FLARE MAN Hospitalization Condition: Fair Disposition: DC-01 TO HOME OR SELFCARE Core Measure Documentation - Palliative Care Palliative Care/ Comfort Measures: Not Applicable - Core Measures Any of the following diagnoses?: none Exam - Constitutional Vitals: Temp Pulse Resp BP Pulse Ox 98.7 F 79 19 134/92 95 10/27/17 07:41 10/27/17 07:41 10/27/17 07:41 10/27/17 07:41 10/27/17 07:41 Plan Activity: advance as tolerated Diet: low fat, low cholesterol, low salt Additional Instructions: 1.Fopllow up with PCP or [facility] in 1 week. 2.Avoid Alcohol Follow up with: PRIMARY CARE,MD [Primary Care Provider] - 3-5 Days Prescriptions: Ciprofloxacin HCl [Ciprofloxacin TAB] 500 mg PO BID #6 tablet HYDROcodone/ACETAMINOPHEN [[place] 5-325 Tablet] 1 each PO Q6H #12 tablet Potassium Chloride [K-Dur] 40 meq PO QDAY 5 Days tablet Promethazine [Phenergan TAB] 25 mg PO Q6HR PRN #20 tab PRN Reason: Nausea or vomiting
[2017-10-27] MEDS: PEPCID IV SCH (09:43)
[2017-10-27] MEDS ORDERED: PEPCID PO SCH (22:00)
== END 2017-10-27 11:25 | disposition home or self-care (01) | DRG 439 ==
LOC: ED 08:07 → 3A 12:44
PROVIDERS: ADMIT Internal Medicine; ATTEND Internal Medicine
DX: K85.90 Acute pancreatitis without necrosis or infection, unspecified (principal); E87.1 Hypo-osmolality and hyponatremia; N39.0 Urinary tract infection, site not specified; F17.200 Nicotine dependence, unspecified, uncomplicated; E86.0 Dehydration; E87.5 Hyperkalemia; Z83.3 Family history of diabetes mellitus; Z80.9 Family history of malignant neoplasm, unspecified; F10.20 Alcohol dependence, uncomplicated; Y90.9 Presence of alcohol in blood, level not specified
CPT/HCPCS: 36415; 71046; 74177; 76705; 80048; 80053; 81001; 81025; 82150; 83036; 83690; 85025; 85027; 87076; 87086; 87186; 93005; 93010; 96361; 96374; 96375; 96376; 99406; J0696; J1170; J1885; J2270; J2405; J3480; J7030; J7040; J7042; Q9967

== ENCOUNTER 2018-02-10 10:26 | Inpatient (IN) | payer OTHER ==
[2018-02-10] MEDS ORDERED: NACL 0.9% 1000 ML 1,000 ML IV ONE ×3 (11:18→12:19)
--- NOTE | 2018-02-10 11:48 | Emergency Department Report ---
ED General Adult HPI - General Chief complaint: Abdominal Pain Stated complaint: UPPER ABDOMEN PAIN Time Seen by Provider: 02/10/18 11:47 Source: patient Mode of arrival: Ambulatory Limitations: No Limitations - History of Present Illness Initial comments: Patient is a 37-year-old female past medical history of alcoholic pancreatitis who presents with upper epigastric abdominal pain. Patient states pain started earlier on today pain is a 10 out of 10 burning type of pain drinking alcohol max the pain worse nothing makes the pain better. Patient states that she feels nauseous but has not vomited. She states that this is similar to the prior time she had pancreatitis. - Related Data Previous Rx's Medication Instructions Recorded Last Taken Type Ciprofloxacin HCl [Ciprofloxacin 500 mg PO BID #6 tablet 10/27/17 Unknown Rx TAB] HYDROcodone/ACETAMINOPHEN [[place] 1 each PO Q6H #12 tablet 10/27/17 Unknown Rx 5-325 Tablet] Potassium Chloride [K-Dur] 40 meq PO QDAY 5 Days tablet 10/27/17 Unknown Rx Promethazine [Phenergan TAB] 25 mg PO Q6HR PRN #20 tab 10/27/17 Unknown Rx Allergies Allergy/AdvReac Type Severity Reaction Status Date / Time Fish Containing Products Allergy Hives Verified 10/24/17 08:26 ED Review of Systems ROS: Stated complaint: UPPER ABDOMEN PAIN Other details as noted in HPI Constitutional: denies: chills, fever Eyes: denies: eye pain, eye discharge, vision change ENT: denies: ear pain, throat pain Respiratory: denies: cough, shortness of breath, wheezing Cardiovascular: denies: chest pain, palpitations Endocrine: no symptoms reported Gastrointestinal: abdominal pain, nausea. denies: diarrhea Genitourinary: denies: urgency, dysuria, discharge Musculoskeletal: denies: back pain, joint swelling, arthralgia Skin: denies: rash, lesions Neurological: denies: headache, weakness, paresthesias Psychiatric: denies: anxiety, depression Hematological/Lymphatic: denies: easy bleeding, easy bruising ED Past Medical Hx - Past Medical History Hx Congestive Heart Failure: No Hx Diabetes: No Hx Asthma: No Hx COPD: No Additional medical history: Vaginal delivery x 2, Pancratitis - Surgical History Hx Appendectomy: Yes Additional Surgical History: x 2 - Social History Smoking Status: Former Smoker Substance Use Type: Alcohol - Medications Home Medications: Home Medications Medication Instructions Recorded Confirmed Last Taken Type Ciprofloxacin HCl [Ciprofloxacin 500 mg PO BID #6 tablet 10/27/17 Unknown Rx TAB] HYDROcodone/ACETAMINOPHEN [[place] 1 each PO Q6H #12 tablet 10/27/17 Unknown Rx 5-325 Tablet] Potassium Chloride [K-Dur] 40 meq PO QDAY 5 Days tablet 10/27/17 Unknown Rx Promethazine [Phenergan TAB] 25 mg PO Q6HR PRN #20 tab 10/27/17 Unknown Rx ED Physical Exam - General Limitations: No Limitations General appearance: alert, in no apparent distress - Head Head exam: Present: atraumatic, normocephalic - Eye Eye exam: Present: normal appearance - ENT ENT exam: Present: mucous membranes moist - Neck Neck exam: Present: normal inspection - Respiratory Respiratory exam: Present: normal lung sounds bilaterally. Absent: respiratory distress - Cardiovascular Cardiovascular Exam: Present: regular rate, normal rhythm. Absent: systolic murmur, diastolic murmur, rubs, gallop - GI/Abdominal GI/Abdominal exam: Present: soft, normal bowel sounds, other (epigastric tenderness ) - Extremities Exam Extremities exam: Present: normal inspection - Back Exam Back exam: Present: normal inspection - Neurological Exam Neurological exam: Present: alert, oriented X3 - Psychiatric Psychiatric exam: Present: normal affect, normal mood - Skin Skin exam: Present: warm, dry, intact, normal color. Absent: rash ED Course Vital Signs 02/10/18 02/10/18 02/10/18 11:10 12:04 12:10 Temperature 98.8 F 98.8 F Pulse Rate 95 H 81 Respiratory 18 19 Rate Blood Pressure 121/81 Blood Pressure 121/86 [Left] O2 Sat by Pulse 97 97 98 Oximetry 02/10/18 02/10/18 02/10/18 12:12 16:20 18:58 Temperature 98.5 F Pulse Rate 83 92 H Respiratory 19 18 16 Rate Blood Pressure Blood Pressure 143/85 128/77 [Left] O2 Sat by Pulse 98 98 96 Oximetry ED Medical Decision Making - Lab Data Result diagrams: 02/10/18 11:22 02/10/18 11:22 Lab Results 02/10/18 02/10/18 02/10/18 Range/Units 11:22 11:22 11:35 WBC 8.1 (4.5-11.0) K/mm3 RBC 4.22 (3.65-5.03) M/mm3 Hgb 14.7 H (10.1-14.3) gm/dl Hct 41.4 (30.3-42.9) % MCV 98 H (79-97) fl MCH 35 H (28-32) pg MCHC 36 H (30-34) % RDW 12.7 L (13.2-15.2) % Plt Count 276 (140-440) K/mm3 Lymph % (Auto) 12.5 L (13.4-35.0) % [place] % (Auto) 3.8 (0.0-7.3) % Eos % (Auto) 0.2 (0.0-4.3) % Baso % (Auto) 0.6 (0.0-1.8) % Lymph # 1.0 L (1.2-5.4) K/mm3 [place] # 0.3 (0.0-0.8) K/mm3 Eos # 0.0 (0.0-0.4) K/mm3 Baso # 0.0 (0.0-0.1) K/mm3 Seg Neutrophils % 82.9 H (40.0-70.0) % Seg Neutrophils # 6.8 (1.8-7.7) K/mm3 Sodium 134 L (137-145) mmol/L Potassium 4.5 (3.6-5.0) mmol/L Chloride 95.3 L (98-107) mmol/L Carbon Dioxide 22 (22-30) mmol/L Anion Gap 21 mmol/L BUN 8 (7-17) mg/dL Creatinine 0.5 L (0.7-1.2) mg/dL Estimated GFR > 60 ml/min BUN/Creatinine Ratio 16 % Glucose 118 H (65-100) mg/dL Calcium 8.7 (8.4-10.2) mg/dL Total Bilirubin 0.50 (0.1-1.2) mg/dL AST 229 H (5-40) units/L ALT 106 H (7-56) units/L Alkaline Phosphatase 68 (35-129) units/L Total Protein 7.9 (6.3-8.2) g/dL Albumin 4.1 (3.9-5) g/dL Albumin/Globulin Ratio 1.1 % Lipase (13-60) units/L HCG, Qual (Negative) Urine Color Yellow (Yellow) Urine Turbidity Cloudy (Clear) Urine pH 5.0 (5.0-7.0) Ur Specific [place] 1.029 (1.003-1.030) Urine Protein 100 mg/dl (Negative) mg/dL Urine Glucose (UA) Neg (Negative) mg/dL Urine Ketones Tr (Negative) mg/dL Urine Blood Mod (Negative) Urine Nitrite Neg (Negative) Urine Bilirubin Neg (Negative) Urine Urobilinogen < 2.0 (<2.0) mg/dL Ur Leukocyte Esterase Neg (Negative) Urine WBC (Auto) 5.0 (0.0-6.0) /HPF Urine RBC (Auto) 3.0 (0.0-6.0) /HPF U Epithel Cells (Auto) 22.0 H (0-13.0) /HPF Urine Bacteria (Auto) 2+ (Negative) /HPF Urine Mucus 3+ /HPF 02/10/18 02/10/18 Range/Units 12:50 15:21 WBC (4.5-11.0) K/mm3 RBC (3.65-5.03) M/mm3 Hgb (10.1-14.3) gm/dl Hct (30.3-42.9) % MCV (79-97) fl MCH (28-32) pg MCHC (30-34) % RDW (13.2-15.2) % Plt Count (140-440) K/mm3 Lymph % (Auto) (13.4-35.0) % [place] % (Auto) (0.0-7.3) % Eos % (Auto) (0.0-4.3) % Baso % (Auto) (0.0-1.8) % Lymph # (1.2-5.4) K/mm3 [place] # (0.0-0.8) K/mm3 Eos # (0.0-0.4) K/mm3 Baso # (0.0-0.1) K/mm3 Seg Neutrophils % (40.0-70.0) % Seg Neutrophils # (1.8-7.7) K/mm3 Sodium (137-145) mmol/L Potassium (3.6-5.0) mmol/L Chloride (98-107) mmol/L Carbon Dioxide (22-30) mmol/L Anion Gap mmol/L BUN (7-17) mg/dL Creatinine (0.7-1.2) mg/dL Estimated GFR ml/min BUN/Creatinine Ratio % Glucose (65-100) mg/dL Calcium (8.4-10.2) mg/dL Total Bilirubin (0.1-1.2) mg/dL AST (5-40) units/L ALT (7-56) units/L Alkaline Phosphatase (35-129) units/L Total Protein (6.3-8.2) g/dL Albumin (3.9-5) g/dL Albumin/Globulin Ratio % Lipase 194 H (13-60) units/L HCG, Qual Negative (Negative) Urine Color (Yellow) Urine Turbidity (Clear) Urine pH (5.0-7.0) Ur Specific [place] (1.003-1.030) Urine Protein (Negative) mg/dL Urine Glucose (UA) (Negative) mg/dL Urine Ketones (Negative) mg/dL Urine Blood (Negative) Urine Nitrite (Negative) Urine Bilirubin (Negative) Urine Urobilinogen (<2.0) mg/dL Ur Leukocyte Esterase (Negative) Urine WBC (Auto) (0.0-6.0) /HPF Urine RBC (Auto) (0.0-6.0) /HPF U Epithel Cells (Auto) (0-13.0) /HPF Urine Bacteria (Auto) (Negative) /HPF Urine Mucus /HPF - Radiology Data Radiology results: report reviewed, image reviewed CT abdomen and pelvis: Shows enlargement of pulmonary nodules and base of left lung. Pancreatitis and possible portal venous thrombosis - Medical Decision Making Cdx: Pancreatitis ddx: Portal venous thrombosis, Hepatits I will get CT scan, cbc, cmp, lipase, IV pain medication, IV fluids, Patient's CT scan is concerning for aggressive lung nodule I will admit the patient to Dr. Delatorre. Critical care attestation.: If time is entered above; I have spent that time in minutes in the direct care of this critically ill patient, excluding procedure time. ED Disposition Clinical Impression: Lung nodule, Pulmonary nodules, Portal vein thrombosis Acute pancreatitis Qualifiers: Pancreatitis type: alcohol induced Acute pancreatitis complication: unspecified Qualified Code(s): K85.20 - Alcohol induced acute pancreatitis without necrosis or infection Disposition: OP ADMIT IP TO THIS HOSP Is pt being admited?: Yes Does the pt Need Aspirin: No Condition: Stable Instructions: Abdominal Pain (ED) Referrals: PRIMARY CARE, [Primary Care Provider] - 3-5 Days
[2018-02-10 11:58] LABS: Basophils % (Auto) 0.6 % (0.0-1.8); Eosinophils % (Auto) 0.2 % (0.0-4.3); Hematocrit 41.4 % (30.3-42.9); Hemoglobin 14.7 gm/dl (10.1-14.3); Lymphocytes % (Auto) 12.5 % (13.4-35.0); Mean Corpuscular HGB Conc 36 % (30-34); Mean Corpuscular Hemoglobin 35 pg (28-32); Mean Corpuscular Volume 98 fl (79-97); Monocytes # (Auto) 0.3 K/mm3 (0.0-0.8); Monocytes % (Auto) 3.8 % (0.0-7.3); Platelet Count 276 K/mm3 (140-440); Red Blood Count 4.22 M/mm3 (3.65-5.03); Red Cell Distribution Width 12.7 % (13.2-15.2)
[2018-02-10 12:04] LABS: Bacteria,Urine 2+ /HPF (Negative); Bilirubin,Urine NEG (Negative); Blood,Urine MOD (Negative); Color,Urine Yellow (Yellow); Mucus,Urine 3+ /HPF; Urobilinogen,Urine < 2.0 mg/dL (<2.0)
[2018-02-10 12:18] LABS: Albumin 4.1 g/dL (3.9-5); BUN/Creatinine Ratio 16; Blood Urea Nitrogen 8 mg/dL (7-17); Calcium 8.7 mg/dL (8.4-10.2); Hemolysis Index 46
[2018-02-10] MEDS ORDERED: PERCOCET 5/325 PO ONE ×2 (12:20→17:06)
[2018-02-10] MEDS ORDERED: SUBLIMAZE IV ONE (12:20)
[2018-02-10 12:33] LABS: Alanine Aminotransferase 106 units/L (7-56)
[2018-02-10] MEDS ORDERED: SUBLIMAZE ONE (12:39)
[2018-02-10] MEDS ORDERED: MORPHINE IV ONE (14:01)
[2018-02-10] MEDS ORDERED: PERCOCET 5/325 ONE (17:10)
--- NOTE | 2018-02-10 17:25 | Cat Scan Report ---
FINAL REPORT EXAM: CT ABDOMEN PELVIS W CON HISTORY: epigastric abd pain TECHNIQUE: Following IV administration of 100 cc of Omnipaque 300 axial helical imaging was performed through the abdomen and pelvis with sagittal and coronal reformatted images obtained. Delayed axial helical imaging was also performed through the abdomen and pelvis. Comparison: CT abdomen and pelvis dated October 24, 2017 FINDINGS: There are multiple small pulmonary nodules in both lung bases, left greater than right. These have increased in size and number in the interval. There is a large area of dense pulmonary consolidation in the left lung base that measures approximately 2.6 centimeters in the maximal axial dimension. This has increased in size in the interval. There is evidence of fatty infiltration/steatosis of the liver. The spleen, kidneys and adrenal glands are normal appearance. The gallbladder is moderately distended and unremarkable in appearance. There is stranding of the peripancreatic fat in the region of the head of the pancreas and duodenum. There is extension of the inflammatory changes into the transverse mesocolon. There is no evidence of necrosis or abscess formation. There is no evidence of pneumoperitoneum or free fluid. The bowel is normal caliber. The abdominal aorta is normal caliber. There is an area of lack of enhancement of the main portal vein which could represent portal vein thrombosis. This finding was not demonstrated on the previous study. There is no evidence of pathologic intra-abdominal adenopathy by CT size criteria. The urinary bladder is moderately distended and unremarkable in appearance. The uterus and adnexal are unremarkable appearance. Again noted is the approximately 3.4 centimeter x 2.8 centimeter by approximately 3.5 centimeter well-defined soft tissue density in the right perineum. This is not appear to a significantly changed in size in the interval. The bony structures are unremarkable in appearance. IMPRESSION: 1. Interval increase in size and number of pulmonary nodules in the left lung base with a large, approximately 2.6 centimeter area of nodular pulmonary consolidation in the left lung base. CT chest is recommended for further evaluation. If there is a clinical concern for pulmonary artery emboli with pulmonary infarcts as the etiology of this finding, CT angiogram chest may be helpful. 2. Findings consistent with pancreatitis. 3. Area of lack of enhancement in the main portal vein which may represent portal vein thrombosis. 4. Evidence of fatty infiltration/steatosis of the liver. 5. No significant change in well-defined approximately 3.4 centimeter x 2.8 centimeter x 3.5 centimeter soft tissue density in the right perineum.
[2018-02-10] MEDS ORDERED: SODIUM CHLORIDE FLUSH SYRINGE 10 ML IV PRN (20:40)
[2018-02-10] MEDS ORDERED: ZOFRAN IV PRN (20:40)
--- NOTE | 2018-02-10 20:40 | History and Physical Report ---
History of Present Illness Date of examination: 02/10/18 Date of admission: 02/10/18 19:34 Chief complaint: CC Severe abdominal pain for one day History of present illness: History of Present Illness: 37-year-old female with past medical history of alcoholic pancreatitis presents with upper epigastric abdominal pain for 1 day.Patient states pain started earlier on today and pain is a 10 out of 10 burning type of pain .Drinking alcohol makes the pain worse and nothing makes the pain better. Patient states that she feels nauseous but has not vomited. She states that this is similar to the prior time she had pancreatitis.Also pain is 8/10 and sharp in nature.Radiating to back.No fever or chills. Past Medical History Pancratitis Surgical History Hx Appendectomy: Yes Additional Surgical History: x 2 Social History Smoking Status: Former Smoker Substance Use Type: Alcohol Family History Htn Medications Home Medications: Home Medications Medication Instructions Recorded Confirmed Last Taken Type Ciprofloxacin HCl [Ciprofloxacin 500 mg PO BID #6 tablet 10/27/17 Unknown Rx TAB] HYDROcodone/ACETAMINOPHEN [[place] 1 each PO Q6H #12 tablet 10/27/17 Unknown Rx 5-325 Tablet] Potassium Chloride [K-Dur] 40 meq PO QDAY 5 Days tablet 10/27/17 Unknown Rx Promethazine [Phenergan TAB] 25 mg PO Q6HR PRN #20 tab 10/27/17 Unknown Rx Review of Systems ROS: Stated complaint: UPPER ABDOMEN PAIN Other details as noted in HPI Constitutional: denies: chills, fever Eyes: denies: eye pain, eye discharge, vision change ENT: denies: ear pain, throat pain Respiratory: denies: cough, shortness of breath, wheezing Cardiovascular: denies: chest pain, palpitations Endocrine: no symptoms reported Gastrointestinal: abdominal pain, nausea. denies: diarrhea Genitourinary: denies: urgency, dysuria, discharge Musculoskeletal: denies: back pain, joint swelling, arthralgia Skin: denies: rash, lesions Neurological: denies: headache, weakness, paresthesias Psychiatric: denies: anxiety, depression Hematological/Lymphatic: denies: easy bleeding, easy bruising Medications and Allergies Allergies Allergy/AdvReac Type Severity Reaction Status Date / Time No Known Allergies Allergy Unverified 02/10/18 22:09 Home Medications Medication Instructions Recorded Confirmed Last Taken Type Acetaminophen [Tylenol] 650 mg PO Q6H PRN MDD pain 02/10/18 02/10/18 Unknown History Active Meds: Active Medications Enoxaparin Sodium (Lovenox) 40 mg SUB-Q QDAY@1000 RUSSELL Exam - Constitutional Vitals: Temp Pulse Resp BP Pulse Ox 98.5 F 87 16 126/67 98 02/10/18 16:20 02/10/18 19:46 02/10/18 19:46 02/10/18 19:46 02/10/18 19:46 General appearance: Present: mild distress, well-nourished - EENT Eyes: Present: PERRL ENT: hearing intact, clear oral mucosa - Neck Neck: Present: supple, normal ROM - Respiratory Respiratory effort: normal Respiratory: bilateral: CTA - Cardiovascular Heart rate: 80 Rhythm: regular Heart Sounds: Present: S1 & S2. Absent: rub, click - Extremities Extremities: no ischemia, pulses intact, pulses symmetrical, No edema Peripheral Pulses: within normal limits - Abdominal General gastrointestinal: Present: soft, tender, non-distended, normal bowel sounds Localized gastrointestinal: tender: diffuse, guarding: diffuse Female genitourinary: Present: normal - Rectal Rectal Exam: deferred - Integumentary Integumentary: Present: clear, warm, dry - Musculoskeletal Musculoskeletal: gait normal, strength equal bilaterally - Psychiatric Psychiatric: appropriate mood/affect, intact judgment & insight - Neurologic Neurologic: CNII-XII intact, moves all extremities - Allied Health Allied health notes reviewed: nursing, case management Results - Labs CBC & Chem 7: 02/11/18 02:32 02/11/18 02:32 Labs: Laboratory Last Values WBC 8.1 K/mm3 (4.5-11.0) 02/10/18 11:22 RBC 4.22 M/mm3 (3.65-5.03) 02/10/18 11:22 Hgb 14.7 gm/dl (10.1-14.3) H 02/10/18 11:22 Hct 41.4 % (30.3-42.9) 02/10/18 11:22 MCV 98 fl (79-97) H 02/10/18 11:22 MCH 35 pg (28-32) H 02/10/18 11:22 MCHC 36 % (30-34) H 02/10/18 11:22 RDW 12.7 % (13.2-15.2) L 02/10/18 11:22 Plt Count 276 K/mm3 (140-440) 02/10/18 11:22 Lymph % (Auto) 12.5 % (13.4-35.0) L 02/10/18 11:22 [place] % (Auto) 3.8 % (0.0-7.3) 02/10/18 11:22 Eos % (Auto) 0.2 % (0.0-4.3) 02/10/18 11:22 Baso % (Auto) 0.6 % (0.0-1.8) 02/10/18 11:22 Lymph # 1.0 K/mm3 (1.2-5.4) L 02/10/18 11:22 [place] # 0.3 K/mm3 (0.0-0.8) 02/10/18 11:22 Eos # 0.0 K/mm3 (0.0-0.4) 02/10/18 11:22 Baso # 0.0 K/mm3 (0.0-0.1) 02/10/18 11:22 Seg Neutrophils % 82.9 % (40.0-70.0) H 02/10/18 11:22 Seg Neutrophils # 6.8 K/mm3 (1.8-7.7) 02/10/18 11:22 Sodium 134 mmol/L (137-145) L 02/10/18 11:22 Potassium 4.5 mmol/L (3.6-5.0) 02/10/18 11:22 Chloride 95.3 mmol/L (98-107) L 02/10/18 11:22 Carbon Dioxide 22 mmol/L (22-30) 02/10/18 11:22 Anion Gap 21 mmol/L 02/10/18 11:22 BUN 8 mg/dL (7-17) 02/10/18 11:22 Creatinine 0.5 mg/dL (0.7-1.2) L 02/10/18 11:22 Estimated GFR > 60 ml/min 02/10/18 11:22 BUN/Creatinine Ratio 16 % 02/10/18 11:22 Glucose 118 mg/dL (65-100) H 02/10/18 11:22 Calcium 8.7 mg/dL (8.4-10.2) 02/10/18 11:22 Total Bilirubin 0.50 mg/dL (0.1-1.2) 02/10/18 11:22 AST 229 units/L (5-40) H 02/10/18 11:22 ALT 106 units/L (7-56) H 02/10/18 11:22 Alkaline Phosphatase 68 units/L (35-129) 02/10/18 11:22 Total Protein 7.9 g/dL (6.3-8.2) 02/10/18 11:22 Albumin 4.1 g/dL (3.9-5) 02/10/18 11:22 Albumin/Globulin Ratio 1.1 % 02/10/18 11:22 Lipase 194 units/L (13-60) H 02/10/18 12:50 HCG, Qual Negative (Negative) 02/10/18 15:21 Urine Color Yellow (Yellow) 02/10/18 11:35 Urine Turbidity Cloudy (Clear) 02/10/18 11:35 Urine pH 5.0 (5.0-7.0) 02/10/18 11:35 Ur Specific [place] 1.029 (1.003-1.030) 02/10/18 11:35 Urine Protein 100 mg/dl mg/dL (Negative) 02/10/18 11:35 Urine Glucose (UA) Neg mg/dL (Negative) 02/10/18 11:35 Urine Ketones Tr mg/dL (Negative) 02/10/18 11:35 Urine Blood Mod (Negative) 02/10/18 11:35 Urine Nitrite Neg (Negative) 02/10/18 11:35 Urine Bilirubin Neg (Negative) 02/10/18 11:35 Urine Urobilinogen < 2.0 mg/dL (<2.0) 02/10/18 11:35 Ur Leukocyte Esterase Neg (Negative) 02/10/18 11:35 Urine WBC (Auto) 5.0 /HPF (0.0-6.0) 02/10/18 11:35 Urine RBC (Auto) 3.0 /HPF (0.0-6.0) 02/10/18 11:35 U Epithel Cells (Auto) 22.0 /HPF (0-13.0) H 02/10/18 11:35 Urine Bacteria (Auto) 2+ /HPF (Negative) 02/10/18 11:35 Urine Mucus 3+ /HPF 02/10/18 11:35 Short CBC 02/10/18 02/11/18 Range/Units 11:22 02:32 WBC 8.1 5.1 (4.5-11.0) K/mm3 Hgb 14.7 H 12.4 (10.1-14.3) gm/dl Hct 41.4 35.0 D (30.3-42.9) % Plt Count 276 203 (140-440) K/mm3 BMP 02/10/18 02/11/18 11:22 02:32 Sodium 134 L 126 L D Potassium 4.5 3.0 L D Chloride 95.3 L 90.3 L Carbon Dioxide 22 21 L BUN 8 3 L Creatinine 0.5 L 0.5 L Glucose 118 H 118 H Calcium 8.7 7.6 L Liver Function 02/10/18 02/11/18 Range/Units 11:22 02:32 Total Bilirubin 0.50 0.80 (0.1-1.2) mg/dL AST 229 H 93 H (5-40) units/L ALT 106 H 61 H (7-56) units/L Alkaline Phosphatase 68 62 (35-129) units/L Albumin 4.1 3.4 L (3.9-5) g/dL Urine 02/10/18 Range/Units 11:35 Urine Color Yellow (Yellow) Urine pH 5.0 (5.0-7.0) Ur Specific [place] 1.029 (1.003-1.030) Urine Protein 100 mg/dl (Negative) mg/dL Urine Glucose (UA) Neg (Negative) mg/dL - Imaging and Cardiology CT scan - abdomen: report reviewed Imaging and Cardiology: CT Abdomen/Pelvis IMPRESSION: 1. Interval increase in size and number of pulmonary nodules in the left lung base with a large, approximately 2.6 centimeter area of nodular pulmonary consolidation in the left lung base. CT chest is recommended for further evaluation. If there is a clinical concern for pulmonary artery emboli with pulmonary infarcts as the etiology of this finding, CT angiogram chest may be helpful. 2. Findings consistent with pancreatitis . 3. Area of lack of enhancement in the main portal vein which may represent portal vein thrombosis. 4. Evidence of fatty infiltration/steatosis of the liver. 5. No significant change in well-defined approximately 3.4 centimeter x 2.8 centimeter x 3.5 centimeter soft tissue density in the right perineum. Assessment and Plan Advance Directives: Yes (FC) VTE prophylaxis?: Chemical Plan of care discussed with patient/family: Yes - Patient Problems (1) Acute pancreatitis Current Visit: Yes Status: Acute Qualifiers: Pancreatitis type: alcohol induced Acute pancreatitis complication: unspecified Qualified Code(s): K85.20 - Alcohol induced acute pancreatitis without necrosis or infection Plan to address problem: IV fluids Keep NPO Recheck Lipase/Amylase Surgery consult (2) Pulmonary nodules Current Visit: Yes Status: Acute Plan to address problem: Incidental finding To rule out Pulmonary infarcts CT Angiogram ordered (3) Transaminitis Current Visit: Yes Status: Acute Plan to address problem: Sec to Etoh Hepatitis profile ordered (4) Dehydration Current Visit: No Status: Acute Plan to address problem: IV fluids for now (5) Hyponatremia Current Visit: No Status: Acute Plan to address problem: Mild Should correct with IV nS (6) EtOH dependence Current Visit: Yes Status: Chronic Qualifiers: Substance use status: unspecified alcohol-induced disorder Qualified Code(s ): F10.29 - Alcohol dependence with unspecified alcohol-induced disorder Plan to address problem: Initiated on CIWA protocol (7) DVT prophylaxis Current Visit: No Status: Acute Plan to address problem: Lovenox sq GI prophylaxis initiated
[2018-02-10] MEDS: MORPHINE IV PRN (21:58)
[2018-02-10] MEDS: SODIUM CHLORIDE FLUSH SYRINGE 10 ML IV SCH (21:59)
[2018-02-10] MEDS: PEPCID IV SCH (21:59)
[2018-02-10] MEDS: D5NS 1,000 ML IV SCH (22:22)
[2018-02-10] MEDS: TYLENOL PO PRN (23:55)
[2018-02-11] MEDS: MORPHINE IV PRN ×6 (01:44→23:51)
[2018-02-11 03:04] LABS: Basophils % (Auto) 0.7 % (0.0-1.8); Eosinophils # (Auto) 0.3 K/mm3 (0.0-0.4); Eosinophils % (Auto) 5.2 % (0.0-4.3); Hemoglobin 12.4 gm/dl (10.1-14.3); Lymphocytes # (Auto) 1.4 K/mm3 (1.2-5.4); Lymphocytes % (Auto) 26.7 % (13.4-35.0); Mean Corpuscular HGB Conc 35 % (30-34); Mean Corpuscular Hemoglobin 35 pg (28-32); Mean Corpuscular Volume 98 fl (79-97); Monocytes # (Auto) 0.4 K/mm3 (0.0-0.8); Monocytes % (Auto) 6.9 % (0.0-7.3); Platelet Count 203 K/mm3 (140-440); Red Blood Count 3.57 M/mm3 (3.65-5.03); Red Cell Distribution Width 12.7 % (13.2-15.2)
[2018-02-11 03:18] LABS: Albumin 3.4 g/dL (3.9-5); BUN/Creatinine Ratio 6; Blood Urea Nitrogen 3 mg/dL (7-17); Calcium 7.6 mg/dL (8.4-10.2); Hemolysis Index 17
[2018-02-11 03:23] LABS: Alanine Aminotransferase 61 units/L (7-56)
[2018-02-11] MEDS: D5NS 1,000 ML IV SCH ×2 (05:53→23:52)
[2018-02-11] MEDS ORDERED: ATIVAN IV PRN ×3 (06:17)
[2018-02-11] MEDS ORDERED: LIBRIUM PO PRN ×2 (06:17)
[2018-02-11 07:16] LABS: Calcium 7.5 mg/dL (8.4-10.2)
[2018-02-11 07:34] LABS: Hepatitis A Antibody IgM Non-Reactive (NonReactive); Hepatitis B Core IgM Non-Reactive (NonReactive); Hepatitis B Surface Antigen Non-Reactive (Negative); Hepatitis C Virus Antibody Non-Reactive (NonReactive)
--- NOTE | 2018-02-11 09:23 | Progress Note ---
Assessment and Plan Assessment and plan: 37 year old female with past medical history significant for pancreatitis presented to the emergency department complaining of abdominal pain of one-day duration Acute pancreatitis, likely alcohol induced - CT abdomen suggestive - Pain control, bowel rest, IV fluids - Abdominal pain is getting better and patient started on IV fluids Pulmonary nodules - We will do CT angiogram of the chest, is negative for nodules - Pulmonary consulted CT abdomen suggestive of portal vein thrombosis and vascular surgery consulted Alcohol abuse - Counseling - She on CIWA protocol for DT Dehydration - Continue IV fluids Hyponatremia - Continue IV fluid DVT prophylaxis - Lovenox History Interval history: Patient was seen and evaluated at the bedside, patient's abdominal pain is getting better, she had nausea in the morning but that resolved. Hospitalist Physical - Physical exam Narrative exam: Not in cardiopulmonary distress. The patient is obese Vital signs as documented. Head exam is unremarkable. No scleral icterus . Neck is without jugular venous distension, thyromegaly, or carotid bruits. Lungs are clear to auscultation. Cardiac exam reveals regular rate and Rhythm. First and second heart sounds normal. No murmurs, rubs or gallops. Abdominal exam reveals normal bowel sounds, abdominal tenderness. Extremities are nonedematous and both femoral and pedal pulses are normal. [employer]AGE [employer]ER[employer]ER: Alert and oriented 3. No focal weakness. - Constitutional Vitals: Temp Pulse Resp BP Pulse Ox 99.0 F 74 18 128/82 95 02/11/18 06:04 02/11/18 06:04 02/11/18 06:04 02/11/18 06:04 02/11/18 06:04 General appearance: Present: mild distress, well-nourished Results - Labs CBC & Chem 7: 02/11/18 02:32 02/11/18 06:36 Labs: Laboratory Last Values WBC 5.1 K/mm3 (4.5-11.0) 02/11/18 02:32 RBC 3.57 M/mm3 (3.65-5.03) L 02/11/18 02:32 Hgb 12.4 gm/dl (10.1-14.3) 02/11/18 02:32 Hct 35.0 % (30.3-42.9) D 02/11/18 02:32 MCV 98 fl (79-97) H 02/11/18 02:32 MCH 35 pg (28-32) H 02/11/18 02:32 MCHC 35 % (30-34) H 02/11/18 02:32 RDW 12.7 % (13.2-15.2) L 02/11/18 02:32 Plt Count 203 K/mm3 (140-440) 02/11/18 02:32 Lymph % (Auto) 26.7 % (13.4-35.0) 02/11/18 02:32 [place] % (Auto) 6.9 % (0.0-7.3) 02/11/18 02:32 Eos % (Auto) 5.2 % (0.0-4.3) H 02/11/18 02:32 Baso % (Auto) 0.7 % (0.0-1.8) 02/11/18 02:32 Lymph # 1.4 K/mm3 (1.2-5.4) 02/11/18 02:32 [place] # 0.4 K/mm3 (0.0-0.8) 02/11/18 02:32 Eos # 0.3 K/mm3 (0.0-0.4) 02/11/18 02:32 Baso # 0.0 K/mm3 (0.0-0.1) 02/11/18 02:32 Seg Neutrophils % 60.5 % (40.0-70.0) 02/11/18 02:32 Seg Neutrophils # 3.1 K/mm3 (1.8-7.7) 02/11/18 02:32 Sodium 126 mmol/L (137-145) L D 02/11/18 02:32 Potassium 3.0 mmol/L (3.6-5.0) L D 02/11/18 02:32 Chloride 90.3 mmol/L (98-107) L 02/11/18 02:32 Carbon Dioxide 21 mmol/L (22-30) L 02/11/18 02:32 Anion Gap 18 mmol/L 02/11/18 02:32 BUN 3 mg/dL (7-17) L 02/11/18 02:32 Creatinine 0.5 mg/dL (0.7-1.2) L 02/11/18 02:32 Estimated GFR > 60 ml/min 02/11/18 02:32 BUN/Creatinine Ratio 6 % 02/11/18 02:32 Glucose 118 mg/dL (65-100) H 02/11/18 02:32 Hemoglobin A1c 5.5 % (4-6) 02/10/18 21:28 Calcium 7.5 mg/dL (8.4-10.2) L 02/11/18 06:36 Phosphorus 2.00 mg/dL (2.5-4.5) L 02/11/18 06:36 Magnesium 1.30 mg/dL (1.7-2.3) L 02/11/18 06:36 Total Bilirubin 0.80 mg/dL (0.1-1.2) 02/11/18 02:32 AST 93 units/L (5-40) H 02/11/18 02:32 ALT 61 units/L (7-56) H 02/11/18 02:32 Alkaline Phosphatase 62 units/L (35-129) 02/11/18 02:32 Ammonia > 10.0 umol/L (25-60) L 02/11/18 06:36 Total Protein 6.6 g/dL (6.3-8.2) 02/11/18 02:32 Albumin 3.4 g/dL (3.9-5) L 02/11/18 02:32 Albumin/Globulin Ratio 1.1 % 02/11/18 02:32 Amylase 57 units/L (27-131) 02/11/18 06:36 Lipase 119 units/L (13-60) H 02/11/18 06:36 HCG, Qual Negative (Negative) 02/10/18 15:21 Urine Color Yellow (Yellow) 02/10/18 11:35 Urine Turbidity Cloudy (Clear) 02/10/18 11:35 Urine pH 5.0 (5.0-7.0) 02/10/18 11:35 Ur Specific [place] 1.029 (1.003-1.030) 02/10/18 11:35 Urine Protein 100 mg/dl mg/dL (Negative) 02/10/18 11:35 Urine Glucose (UA) Neg mg/dL (Negative) 02/10/18 11:35 Urine Ketones Tr mg/dL (Negative) 02/10/18 11:35 Urine Blood Mod (Negative) 02/10/18 11:35 Urine Nitrite Neg (Negative) 02/10/18 11:35 Urine Bilirubin Neg (Negative) 02/10/18 11:35 Urine Urobilinogen < 2.0 mg/dL (<2.0) 02/10/18 11:35 Ur Leukocyte Esterase Neg (Negative) 02/10/18 11:35 Urine WBC (Auto) 5.0 /HPF (0.0-6.0) 02/10/18 11:35 Urine RBC (Auto) 3.0 /HPF (0.0-6.0) 02/10/18 11:35 U Epithel Cells (Auto) 22.0 /HPF (0-13.0) H 02/10/18 11:35 Urine Bacteria (Auto) 2+ /HPF (Negative) 02/10/18 11:35 Urine Mucus 3+ /HPF 02/10/18 11:35 Hepatitis A IgM Ab Non-reactive (NonReactive) 02/11/18 06:36 Hep Bs Antigen Non-reactive (Negative) 02/11/18 06:36 Hep B Core IgM Ab Non-reactive (NonReactive) 02/11/18 06:36 Hepatitis C Antibody Non-reactive (NonReactive) 02/11/18 06:36
--- NOTE | 2018-02-11 09:44 | Cat Scan Report ---
CTA CHEST: HISTORY: Pulmonary nodules on CT abdomen. COMPARISON: none. TECHNIQUE: Helical CT in 1.25mm intervals following IV contrast. Pulmonary embolus protocol. Sagittal and coronal reformatted images. Rotational MIP images. FINDINGS: Contrast bolus is satisfactory. No pulmonary embolus is identified. Thyroid gland: Normal. Tracheobronchial tree: Normal. Esophagus: Normal. Heart: Normal. Pericardium: Normal. Mediastinum: Normal. Lung [place]: No underlying parenchymal lung disease is appreciated. There are areas of subpleural atelectasis or scarring in both lower lobes. No suspicious pulmonary nodules are identified on CTA chest. Pleural Spaces: Normal. Musculoskeletal: Normal. IMPRESSION: No evidence for pulmonary embolus. Subpleural atelectatic changes or linear scarring in the lower lobes. No suspicious pulmonary nodule.
[2018-02-11 09:54] LABS: BUN/Creatinine Ratio 4; Blood Urea Nitrogen 2 mg/dL (7-17); Calcium 7.2 mg/dL (8.4-10.2); Hemolysis Index 31
[2018-02-11] MEDS ORDERED: MAGNESIUM SULFATE 1 GM in NACL 0.9% 50 ML IV ONE (10:00)
[2018-02-11] MEDS ORDERED: LOVENOX SUB-Q SCH (10:00)
[2018-02-11] MEDS: PEPCID IV SCH ×2 (10:50→21:06)
[2018-02-11] MEDS: LOVENOX SUB-Q SCH (10:50)
[2018-02-11] MEDS: FOLVITE PO SCH ×2 (10:50→15:21)
[2018-02-11] MEDS ORDERED: KPHOS 45 MMOL in NACL 0.9% 500 ML 500 ML IV ONE (11:00)
--- NOTE | 2018-02-11 11:37 | Consultation ---
History of Present Illness Consult date: 02/11/18 Reason for consult: abnormal CXR/CT History of present illness: Called to evaluate case of a 37 year old female, admitted with abdominal pain consistent with pancreatitis and abnormal CT scan. She presents with history of mid upper abdominal pain, band like, associated with nausea and vomiting. She was admitted for recurrent pancreatitis after having a similar episode, treated here 3 months ago. She denies any respiratory complaints, besides some breathing discomfort due to her abdominal pain. She denies prior history of pneumonia or respiratory complaints or illness. No wheezing or chills reported. She had abdominal CT scan showing some pulmonary nodules that reportedly has change and will consult and a CTA was ordered for further review. Chest CTA showed evidence of subpleural atelectatic or segmental changes in the bases with no pulmonary emboli, nodules or effusions seen. Medications and Allergies Allergies Allergy/AdvReac Type Severity Reaction Status Date / Time No Known Allergies Allergy Unverified 02/10/18 22:09 Home Medications Medication Instructions Recorded Confirmed Last Taken Type Acetaminophen [Tylenol] 650 mg PO Q6H PRN MDD pain 02/10/18 02/10/18 Unknown History Active Meds: Active Medications Acetaminophen (Tylenol) 650 mg PO Q4H PRN PRN Reason: Pain MILD(1-3)/Fever >100.5/CM Last Admin: 02/10/18 23:55 Dose: 650 mg Chlordiazepoxide HCl (Librium) 50 mg PO Q1H PRN PRN Reason: CIWA-Ar 8-15 Chlordiazepoxide HCl (Librium) 100 mg PO Q1H PRN PRN Reason: CIWA-Ar 16-25 Enoxaparin Sodium (Lovenox) 40 mg SUB-Q QDAY@1000 [facility] Last Admin: 02/11/18 10:50 Dose: 40 mg Famotidine (Pepcid) 20 mg IV BID [facility] Last Admin: 02/11/18 10:50 Dose: 20 mg Folic Acid (Folvite) 1 mg PO QDAY [facility] Dextrose/Sodium Chloride (D5ns) 1,000 mls @ 125 mls/hr IV DIRECT [facility] Last Admin: 02/11/18 05:53 Dose: 125 mls/hr Thiamine HCl 100 mg/ Sodium (Chloride) 51 mls @ 100 mls/hr IV QDAY [facility] Potassium Phosphate 45 mmol/ (Sodium Chloride) 515 mls @ 85 mls/hr IV ONCE ONE Stop: 02/11/18 17:03 Last Admin: 02/11/18 10:51 Dose: 85 mls/hr Lorazepam (Ativan) 2 mg IV Q1H PRN PRN Reason: CIWA-Ar 8-15 Lorazepam (Ativan) 4 mg IV Q1H PRN PRN Reason: CIWA-Ar 16-25 Lorazepam (Ativan) 4 mg IV Q15MIN PRN PRN Reason: CIWA-Ar >25 Morphine Sulfate (Morphine) 2 mg IV Q4H PRN PRN Reason: Pain, Moderate (4-6) Last Admin: 02/11/18 10:48 Dose: 2 mg Ondansetron HCl (Zofran) 4 mg IV Q8H PRN PRN Reason: Nausea And Vomiting Last Admin: 02/10/18 23:55 Dose: 4 mg Sodium Chloride (Sodium Chloride Flush Syringe 10 Ml) 10 ml IV BID RUSSELL Last Admin: 02/10/18 21:59 Dose: 10 ml Sodium Chloride (Sodium Chloride Flush Syringe 10 Ml) 10 ml IV PRN PRN PRN Reason: LINE FLUSH Review of Systems Constitutional: weight gain Cardiovascular: no chest pain, no orthopnea, no palpitations, no rapid/ irregular heart beat, no edema, no syncope, no shortness of breath, no dyspnea on exertion Respiratory: no cough, no cough with sputum, no excessive sputum, no hemoptysis , no shortness of breath, no dyspnea on exertion, no wheezing, no pleurisy Gastrointestinal: abdominal pain (see HPI), nausea, vomiting Physical Examination Vital signs: Vital Signs Temp Pulse Resp BP Pulse Ox 98.8 F 95 H 18 121/81 97 02/10/18 11:10 02/10/18 11:10 02/10/18 11:10 02/10/18 11:10 02/10/18 11:10 General appearance: no acute distress, alert Eyes: non-icteric ENT: oropharynx moist Neck: supple, no lymphadenopathy, no JVD Ascultation: Left: rales (very faint, left base), Bilateral: clear Cardiovascular: regular rate and rhythm Gastrointestinal: normoactive bowel sounds, tender (mid abdomen and epigastric area), non-distended Integumentary: normal Extremities: no cyanosis, no edema, pink and warm Musculoskeletal: no deformities normal mental status, non-focal exam, CN II-XII normal, motor strength normal and Results - Laboratory Findings CBC and BMP: 02/11/18 02:32 02/11/18 06:36 Abnormal lab findings: Abnormal Labs 02/10/18 02/10/18 02/10/18 11:22 11:22 11:35 RBC Hgb 14.7 H MCV 98 H MCH 35 H MCHC 36 H RDW 12.7 L Lymph % (Auto) 12.5 L Eos % (Auto) Lymph # 1.0 L Seg Neutrophils % 82.9 H Sodium 134 L Potassium Chloride 95.3 L Carbon Dioxide BUN Creatinine 0.5 L Glucose 118 H Calcium Phosphorus Magnesium AST 229 H ALT 106 H Ammonia Albumin Lipase U Epithel Cells (Auto) 22.0 H 02/10/18 02/11/18 02/11/18 12:50 02:32 02:32 RBC 3.57 L Hgb MCV 98 H MCH 35 H MCHC 35 H RDW 12.7 L Lymph % (Auto) Eos % (Auto) 5.2 H Lymph # Seg Neutrophils % Sodium 126 L D Potassium 3.0 L D Chloride 90.3 L Carbon Dioxide 21 L BUN 3 L Creatinine 0.5 L Glucose 118 H Calcium 7.6 L Phosphorus Magnesium AST 93 H ALT 61 H Ammonia Albumin 3.4 L Lipase 194 H U Epithel Cells (Auto) 02/11/18 02/11/18 02/11/18 06:36 06:36 06:36 RBC Hgb MCV MCH MCHC RDW Lymph % (Auto) Eos % (Auto) Lymph # Seg Neutrophils % Sodium Potassium Chloride Carbon Dioxide BUN Creatinine Glucose Calcium 7.5 L Phosphorus 2.00 L Magnesium 1.30 L AST ALT Ammonia > 10.0 L Albumin Lipase 119 H U Epithel Cells (Auto) 02/11/18 06:36 RBC Hgb MCV MCH MCHC RDW Lymph % (Auto) Eos % (Auto) Lymph # Seg Neutrophils % Sodium 130 L Potassium 3.2 L Chloride 96.7 L Carbon Dioxide 18 L BUN 2 L Creatinine 0.5 L Glucose 116 H Calcium 7.2 L Phosphorus Magnesium AST ALT Ammonia Albumin Lipase U Epithel Cells (Auto) - Diagnostic Findings Chest x-ray: report reviewed, image reviewed CT scan - chest: report reviewed, image reviewed Assessment and Plan Acute pancreatitis Subpleural atelectasis. Cause unknown Recommendations Incentive spirometry Ambulate as tolerated DVT prophylaxis If no additional findings, I will probably monitor the patient clinically. Continue management for pancreatitis, follow-up GI recommendations. Discussed with patient and spouse in detail. All questions answered. Thanks
--- NOTE | 2018-02-11 13:00 | Consultation ---
History of Present Illness Consult date: 02/11/18 Chief complaint: abdominal pain, pancreatitis - History of present illness History of present illness: 37 yo F with HX of etoh induced pancreatitis with recent admission to [facility] presents to ER with c/o 2 day hx of epigastric abd pain. The pain radiates from the epigastrum to b/l Upper quadrants and to the back. She states the pain started after she started drinking alcohol again. She denies f/c, cp, sob, n/v at this time. Past History Past Medical History: other (pancreatitis) Past Surgical History: appendectomy, (x2), Other (cyst removal) Social history: alcohol abuse Family history: no significant family history Medications and Allergies Allergies Allergy/AdvReac Type Severity Reaction Status Date / Time No Known Allergies Allergy Unverified 02/10/18 22:09 Home Medications Medication Instructions Recorded Confirmed Last Taken Type Acetaminophen [Tylenol] 650 mg PO Q6H PRN MDD pain 02/10/18 02/10/18 Unknown History Active Meds: Active Medications Acetaminophen (Tylenol) 650 mg PO Q4H PRN PRN Reason: Pain MILD(1-3)/Fever >100.5/CM Last Admin: 02/10/18 23:55 Dose: 650 mg Chlordiazepoxide HCl (Librium) 50 mg PO Q1H PRN PRN Reason: CIWA-Ar 8-15 Chlordiazepoxide HCl (Librium) 100 mg PO Q1H PRN PRN Reason: CIWA-Ar 16-25 Enoxaparin Sodium (Lovenox) 40 mg SUB-Q QDAY@1000 [facility] Last Admin: 02/11/18 10:50 Dose: 40 mg Famotidine (Pepcid) 20 mg IV BID [facility] Last Admin: 02/11/18 10:50 Dose: 20 mg Folic Acid (Folvite) 1 mg PO QDAY [facility] Dextrose/Sodium Chloride (D5ns) 1,000 mls @ 125 mls/hr IV DIRECT [facility] Last Admin: 02/11/18 05:53 Dose: 125 mls/hr Thiamine HCl 100 mg/ Sodium (Chloride) 51 mls @ 100 mls/hr IV QDAY [facility] Potassium Phosphate 45 mmol/ (Sodium Chloride) 515 mls @ 85 mls/hr IV ONCE ONE Stop: 02/11/18 17:03 Last Admin: 02/11/18 10:51 Dose: 85 mls/hr Lorazepam (Ativan) 2 mg IV Q1H PRN PRN Reason: CIWA-Ar 8-15 Lorazepam (Ativan) 4 mg IV Q1H PRN PRN Reason: CIWA-Ar 16-25 Lorazepam (Ativan) 4 mg IV Q15MIN PRN PRN Reason: CIWA-Ar >25 Morphine Sulfate (Morphine) 2 mg IV Q4H PRN PRN Reason: Pain, Moderate (4-6) Last Admin: 02/11/18 10:48 Dose: 2 mg Ondansetron HCl (Zofran) 4 mg IV Q8H PRN PRN Reason: Nausea And Vomiting Last Admin: 02/10/18 23:55 Dose: 4 mg Sodium Chloride (Sodium Chloride Flush Syringe 10 Ml) 10 ml IV BID [facility] Last Admin: 02/10/18 21:59 Dose: 10 ml Sodium Chloride (Sodium Chloride Flush Syringe 10 Ml) 10 ml IV PRN PRN PRN Reason: LINE FLUSH Review of Systems All systems: negative (10 point review of systems was performed and negative except for that listed in HPI) Exam Vital Signs Temp Pulse Resp BP Pulse Ox 98.8 F 95 H 18 121/81 97 02/10/18 11:10 02/10/18 11:10 02/10/18 11:10 02/10/18 11:10 02/10/18 11:10 Narrative exam: General: Awake, alert, oriented 3. No apparent distress CV: S1, S2 present Respiratory: No audible wheezes Abd: soft, ND, mild epigastric TTP, no r/rg Ext: no c/c/e Results - Labs 02/11/18 02:32 02/11/18 06:36 Abnormal lab results 02/10/18 02/11/18 02/11/18 Range/Units 12:50 02:32 02:32 RBC 3.57 L (3.65-5.03) M/mm3 MCV 98 H (79-97) fl MCH 35 H (28-32) pg MCHC 35 H (30-34) % RDW 12.7 L (13.2-15.2) % Eos % (Auto) 5.2 H (0.0-4.3) % Sodium 126 L D (137-145) mmol/L Potassium 3.0 L D (3.6-5.0) mmol/L Chloride 90.3 L (98-107) mmol/L Carbon Dioxide 21 L (22-30) mmol/L BUN 3 L (7-17) mg/dL Creatinine 0.5 L (0.7-1.2) mg/dL Glucose 118 H (65-100) mg/dL Calcium 7.6 L (8.4-10.2) mg/dL Phosphorus (2.5-4.5) mg/dL Magnesium (1.7-2.3) mg/dL AST 93 H (5-40) units/L ALT 61 H (7-56) units/L Ammonia (25-60) umol/L Albumin 3.4 L (3.9-5) g/dL Lipase 194 H (13-60) units/L 02/11/18 02/11/18 02/11/18 Range/Units 06:36 06:36 06:36 RBC (3.65-5.03) M/mm3 MCV (79-97) fl MCH (28-32) pg MCHC (30-34) % RDW (13.2-15.2) % Eos % (Auto) (0.0-4.3) % Sodium (137-145) mmol/L Potassium (3.6-5.0) mmol/L Chloride (98-107) mmol/L Carbon Dioxide (22-30) mmol/L BUN (7-17) mg/dL Creatinine (0.7-1.2) mg/dL Glucose (65-100) mg/dL Calcium 7.5 L (8.4-10.2) mg/dL Phosphorus 2.00 L (2.5-4.5) mg/dL Magnesium 1.30 L (1.7-2.3) mg/dL AST (5-40) units/L ALT (7-56) units/L Ammonia > 10.0 L (25-60) umol/L Albumin (3.9-5) g/dL Lipase 119 H (13-60) units/L 02/11/18 Range/Units 06:36 RBC (3.65-5.03) M/mm3 MCV (79-97) fl MCH (28-32) pg MCHC (30-34) % RDW (13.2-15.2) % Eos % (Auto) (0.0-4.3) % Sodium 130 L (137-145) mmol/L Potassium 3.2 L (3.6-5.0) mmol/L Chloride 96.7 L (98-107) mmol/L Carbon Dioxide 18 L (22-30) mmol/L BUN 2 L (7-17) mg/dL Creatinine 0.5 L (0.7-1.2) mg/dL Glucose 116 H (65-100) mg/dL Calcium 7.2 L (8.4-10.2) mg/dL Phosphorus (2.5-4.5) mg/dL Magnesium (1.7-2.3) mg/dL AST (5-40) units/L ALT (7-56) units/L Ammonia (25-60) umol/L Albumin (3.9-5) g/dL Lipase (13-60) units/L Diabetes panel 02/10/18 02/11/18 02/11/18 Range/Units 21:28 02:32 06:36 Sodium 126 L D (137-145) mmol/L Potassium 3.0 L D (3.6-5.0) mmol/L Chloride 90.3 L (98-107) mmol/L Carbon Dioxide 21 L (22-30) mmol/L BUN 3 L (7-17) mg/dL Creatinine 0.5 L (0.7-1.2) mg/dL Glucose 118 H (65-100) mg/dL Hemoglobin A1c 5.5 (4-6) % Calcium 7.6 L 7.5 L (8.4-10.2) mg/dL AST 93 H (5-40) units/L ALT 61 H (7-56) units/L Alkaline Phosphatase 62 (35-129) units/L Total Protein 6.6 (6.3-8.2) g/dL Albumin 3.4 L (3.9-5) g/dL 02/11/18 Range/Units 06:36 Sodium 130 L (137-145) mmol/L Potassium 3.2 L (3.6-5.0) mmol/L Chloride 96.7 L (98-107) mmol/L Carbon Dioxide 18 L (22-30) mmol/L BUN 2 L (7-17) mg/dL Creatinine 0.5 L (0.7-1.2) mg/dL Glucose 116 H (65-100) mg/dL Hemoglobin A1c (4-6) % Calcium 7.2 L (8.4-10.2) mg/dL AST (5-40) units/L ALT (7-56) units/L Alkaline Phosphatase (35-129) units/L Total Protein (6.3-8.2) g/dL Albumin (3.9-5) g/dL Calcium panel 02/11/18 02/11/18 02/11/18 Range/Units 02:32 06:36 06:36 Calcium 7.6 L 7.5 L 7.2 L (8.4-10.2) mg/dL Phosphorus 2.00 L (2.5-4.5) mg/dL Albumin 3.4 L (3.9-5) g/dL Pituitary panel 02/11/18 02/11/18 02/11/18 Range/Units 02:32 06:36 06:36 Sodium 126 L D 130 L (137-145) mmol/L Potassium 3.0 L D 3.2 L (3.6-5.0) mmol/L Chloride 90.3 L 96.7 L (98-107) mmol/L Carbon Dioxide 21 L 18 L (22-30) mmol/L BUN 3 L 2 L (7-17) mg/dL Creatinine 0.5 L 0.5 L (0.7-1.2) mg/dL Glucose 118 H 116 H (65-100) mg/dL Calcium 7.6 L 7.5 L 7.2 L (8.4-10.2) mg/dL Adrenal panel 02/11/18 02/11/18 02/11/18 Range/Units 02:32 06:36 06:36 Sodium 126 L D 130 L (137-145) mmol/L Potassium 3.0 L D 3.2 L (3.6-5.0) mmol/L Chloride 90.3 L 96.7 L (98-107) mmol/L Carbon Dioxide 21 L 18 L (22-30) mmol/L BUN 3 L 2 L (7-17) mg/dL Creatinine 0.5 L 0.5 L (0.7-1.2) mg/dL Glucose 118 H 116 H (65-100) mg/dL Calcium 7.6 L 7.5 L 7.2 L (8.4-10.2) mg/dL Total Bilirubin 0.80 (0.1-1.2) mg/dL AST 93 H (5-40) units/L ALT 61 H (7-56) units/L Alkaline Phosphatase 62 (35-129) units/L Total Protein 6.6 (6.3-8.2) g/dL Albumin 3.4 L (3.9-5) g/dL - Imaging CT scan - abdomen: report reviewed, image reviewed CT scan - pelvis: report reviewed, image reviewed Assessment and Plan 37 yo F with etoh induced pancreatitis, dehydration with multiple electrolyte abnormalities Plan: 1. start clear liquids 2. trend lipase, LFTs, BMP. Replace lytes as needed 3. IVF 4. ?portal vein thrombosis - possibly secondary to recurrent episodes of pancreatitis. Recommend vascular consult. 5. OOB/ambulate 6. patient advised to stop etoh abuse. She has a prior hx of etoh induced pancreatitis. She may require rehab or additional support to help. Thank you for this consultation, please call with questions or concerns.
[2018-02-11] MEDS: SODIUM CHLORIDE FLUSH SYRINGE 10 ML IV SCH ×2 (15:21→21:07)
[2018-02-11] MEDS ORDERED: POTASSIUM CHLORIDE FEEDTUBE ONE (16:02)
--- NOTE | 2018-02-11 16:15 | Consultation ---
History of Present Illness - Reason for Consult Consult date: 02/11/18 portal vein thrombus - History of Present Illness Patient with a history of recurrent pancreatitis secondary to alcohol abuse presents with a CT with interpretation of thrombus within the portal vein. The patient complains of mid epigastric pain which is improved following the administration of IV fluids and nothing by mouth status. Medications and Allergies Allergies Allergy/AdvReac Type Severity Reaction Status Date / Time No Known Allergies Allergy Unverified 02/10/18 22:09 Home Medications Medication Instructions Recorded Confirmed Last Taken Type Acetaminophen [Tylenol] 650 mg PO Q6H PRN MDD pain 02/10/18 02/10/18 Unknown History Active Meds: Active Medications Acetaminophen (Tylenol) 650 mg PO Q4H PRN PRN Reason: Pain MILD(1-3)/Fever >100.5/CM Last Admin: 02/10/18 23:55 Dose: 650 mg Chlordiazepoxide HCl (Librium) 50 mg PO Q1H PRN PRN Reason: NICOLAS-Luis A 8-15 Chlordiazepoxide HCl (Librium) 100 mg PO Q1H PRN PRN Reason: NICOLAS-Luis A 16-25 Enoxaparin Sodium (Lovenox) 40 mg SUB-Q QDAY@1000 [facility] Last Admin: 02/11/18 10:50 Dose: 40 mg Famotidine (Pepcid) 20 mg IV BID [facility] Last Admin: 02/11/18 10:50 Dose: 20 mg Folic Acid (Folvite) 1 mg PO QDAY [facility] Last Admin: 02/11/18 15:21 Dose: 1 mg Dextrose/Sodium Chloride (D5ns) 1,000 mls @ 125 mls/hr IV DIRECT [facility] Last Admin: 02/11/18 05:53 Dose: 125 mls/hr Thiamine HCl 100 mg/ Sodium (Chloride) 51 mls @ 100 mls/hr IV QDAY [facility] Potassium Phosphate 45 mmol/ (Sodium Chloride) 515 mls @ 85 mls/hr IV ONCE ONE Stop: 02/11/18 17:03 Last Admin: 02/11/18 10:51 Dose: 85 mls/hr Lorazepam (Ativan) 2 mg IV Q1H PRN PRN Reason: BRIANWA-Ar 8-15 Lorazepam (Ativan) 4 mg IV Q1H PRN PRN Reason: BRIANWA-Luis A 16-25 Lorazepam (Ativan) 4 mg IV Q15MIN PRN PRN Reason: CIWA-Ar >25 Morphine Sulfate (Morphine) 2 mg IV Q4H PRN PRN Reason: Pain, Moderate (4-6) Last Admin: 02/11/18 15:20 Dose: 2 mg Ondansetron HCl (Zofran) 4 mg IV Q8H PRN PRN Reason: Nausea And Vomiting Last Admin: 02/10/18 23:55 Dose: 4 mg Sodium Chloride (Sodium Chloride Flush Syringe 10 Ml) 10 ml IV BID [facility] Last Admin: 02/11/18 15:21 Dose: 10 ml Sodium Chloride (Sodium Chloride Flush Syringe 10 Ml) 10 ml IV PRN PRN PRN Reason: LINE FLUSH Review of Systems All systems: negative Exam - Constitutional Vitals: Temp Pulse Resp BP Pulse Ox 99.1 F 93 H 20 151/92 98 02/11/18 12:14 02/11/18 12:14 02/11/18 12:14 02/11/18 12:14 02/11/18 12:14 General appearance: Present: no acute distress - EENT Eyes: Present: PERRL, EOM intact ENT: clear oral mucosa - Neck Neck: Present: supple, normal ROM - Respiratory Respiratory effort: normal - Extremities Extremities: no ischemia - Abdominal General gastrointestinal: Present: tender - Rectal Rectal Exam: deferred - Musculoskeletal Musculoskeletal: strength equal bilaterally - Psychiatric Psychiatric: appropriate mood/affect, cooperative Results - Labs CBC & Chem 7: 02/11/18 02:32 02/11/18 06:36 Labs: Abnormal lab results 02/11/18 02/11/18 02/11/18 Range/Units 02:32 02:32 06:36 RBC 3.57 L (3.65-5.03) M/mm3 MCV 98 H (79-97) fl MCH 35 H (28-32) pg MCHC 35 H (30-34) % RDW 12.7 L (13.2-15.2) % Eos % (Auto) 5.2 H (0.0-4.3) % Sodium 126 L D (137-145) mmol/L Potassium 3.0 L D (3.6-5.0) mmol/L Chloride 90.3 L (98-107) mmol/L Carbon Dioxide 21 L (22-30) mmol/L BUN 3 L (7-17) mg/dL Creatinine 0.5 L (0.7-1.2) mg/dL Glucose 118 H (65-100) mg/dL Calcium 7.6 L 7.5 L (8.4-10.2) mg/dL Phosphorus 2.00 L (2.5-4.5) mg/dL Magnesium 1.30 L (1.7-2.3) mg/dL AST 93 H (5-40) units/L ALT 61 H (7-56) units/L Ammonia (25-60) umol/L Albumin 3.4 L (3.9-5) g/dL Lipase (13-60) units/L 02/11/18 02/11/18 02/11/18 Range/Units 06:36 06:36 06:36 RBC (3.65-5.03) M/mm3 MCV (79-97) fl MCH (28-32) pg MCHC (30-34) % RDW (13.2-15.2) % Eos % (Auto) (0.0-4.3) % Sodium 130 L (137-145) mmol/L Potassium 3.2 L (3.6-5.0) mmol/L Chloride 96.7 L (98-107) mmol/L Carbon Dioxide 18 L (22-30) mmol/L BUN 2 L (7-17) mg/dL Creatinine 0.5 L (0.7-1.2) mg/dL Glucose 116 H (65-100) mg/dL Calcium 7.2 L (8.4-10.2) mg/dL Phosphorus (2.5-4.5) mg/dL Magnesium (1.7-2.3) mg/dL AST (5-40) units/L ALT (7-56) units/L Ammonia > 10.0 L (25-60) umol/L Albumin (3.9-5) g/dL Lipase 119 H (13-60) units/L Assessment and Plan Patient with a history of pancreatitis which is now resolving with conservative management. Patient's nonopacification within her portal venous system may be the result of mixing artifact however, given the patient's recurrent pancreatitis she is at at least some risk for developing of thrombus within her portal vein or SMV. Would recommend anticoagulation with Eliquis for 3 months and repeat imaging with a CT of the abdomen and pelvis in both arterial and venous phases.
[2018-02-11] MEDS: VITAMIN B-1 100 MG in NACL 0.9% 50 ML IV SCH (19:53)
[2018-02-11] MEDS: TYLENOL PO PRN (23:55)
[2018-02-12] MEDS: MORPHINE IV PRN ×3 (07:53→21:22)
[2018-02-12] MEDS: D5NS 1,000 ML IV SCH (07:55)
[2018-02-12 08:11] LABS: Basophils % (Auto) 0.6 % (0.0-1.8); Eosinophils # (Auto) 0.3 K/mm3 (0.0-0.4); Eosinophils % (Auto) 4.7 % (0.0-4.3); Hematocrit 33.9 % (30.3-42.9); Lymphocytes # (Auto) 1.3 K/mm3 (1.2-5.4); Lymphocytes % (Auto) 21.9 % (13.4-35.0); Mean Corpuscular HGB Conc 36 % (30-34); Mean Corpuscular Hemoglobin 34 pg (28-32); Mean Corpuscular Volume 97 fl (79-97); Monocytes # (Auto) 0.3 K/mm3 (0.0-0.8); Monocytes % (Auto) 5.8 % (0.0-7.3); Platelet Count 192 K/mm3 (140-440); Red Cell Distribution Width 12.9 % (13.2-15.2)
[2018-02-12 08:12] LABS: Hemolysis Index 8
[2018-02-12 08:52] LABS: BUN/Creatinine Ratio 2; Blood Urea Nitrogen < 1 mg/dL (7-17)
--- NOTE | 2018-02-12 09:42 | Progress Note ---
Assessment and Plan 37 yo F with acute pancreatitis, etoh induced Abd u/s on prior admission was unremarkable, gallbladder with questionable trace sludge but no stones Plan: 1. clear liquid diet, would not advance due to pain 2. IVF 3. lipase pending 4. If patient continues to have fevers, obtain CT scan A/P pancreas protocol 5. DVT ppx 6. replace lytes as needed Thank you for this consultation, please call with questions or concerns. Subjective Date of service: 02/12/18 Narrative: Pt seen and examined. c/o epigastric abdominal pain, constant, relieved with pain medication. Had one episode of emesis after drinking broth. She drank the broth right after taking pain medications. Tm 100.5 overnight. No BM or flatus. Objective Vital Signs - 12hr 02/11/18 02/11/18 02/11/18 22:00 23:49 23:51 Temperature 100.5 F H Pulse Rate 131 H Respiratory 18 18 18 Rate Respiratory 18 Rate [Abdomen] Blood Pressure 147/88 O2 Sat by Pulse 96 Oximetry 02/11/18 02/12/18 23:55 06:05 Temperature 98.8 F Pulse Rate 92 H Respiratory 18 18 Rate Respiratory Rate [Abdomen] Blood Pressure 147/80 O2 Sat by Pulse 98 Oximetry - General physical appearance Narrative Exam: Gen: AAOx3. NAD CV: S1, S2+ Resp: even and unlabored Abd; soft, ND, + epigastric TTP, no r/r/g Ext: no c/c/e - Labs 02/12/18 04:00 02/12/18 04:00 Diabetes panel 02/11/18 02/12/18 Range/Units 06:36 04:00 Sodium 130 L 137 D (137-145) mmol/L Potassium 3.2 L 3.8 (3.6-5.0) mmol/L Chloride 96.7 L 104.8 (98-107) mmol/L Carbon Dioxide 18 L 23 (22-30) mmol/L BUN 2 L < 1 L (7-17) mg/dL Creatinine 0.5 L 0.5 L (0.7-1.2) mg/dL Glucose 116 H 112 H (65-100) mg/dL Calcium 7.2 L 8.0 L (8.4-10.2) mg/dL Calcium panel 02/11/18 02/12/18 Range/Units 06:36 04:00 Calcium 7.2 L 8.0 L (8.4-10.2) mg/dL Pituitary panel 02/11/18 02/12/18 Range/Units 06:36 04:00 Sodium 130 L 137 D (137-145) mmol/L Potassium 3.2 L 3.8 (3.6-5.0) mmol/L Chloride 96.7 L 104.8 (98-107) mmol/L Carbon Dioxide 18 L 23 (22-30) mmol/L BUN 2 L < 1 L (7-17) mg/dL Creatinine 0.5 L 0.5 L (0.7-1.2) mg/dL Glucose 116 H 112 H (65-100) mg/dL Calcium 7.2 L 8.0 L (8.4-10.2) mg/dL Adrenal panel 02/11/18 02/12/18 Range/Units 06:36 04:00 Sodium 130 L 137 D (137-145) mmol/L Potassium 3.2 L 3.8 (3.6-5.0) mmol/L Chloride 96.7 L 104.8 (98-107) mmol/L Carbon Dioxide 18 L 23 (22-30) mmol/L BUN 2 L < 1 L (7-17) mg/dL Creatinine 0.5 L 0.5 L (0.7-1.2) mg/dL Glucose 116 H 112 H (65-100) mg/dL Calcium 7.2 L 8.0 L (8.4-10.2) mg/dL
[2018-02-12] MEDS: LOVENOX SUB-Q SCH (10:00)
[2018-02-12] MEDS: VITAMIN B-1 100 MG in NACL 0.9% 50 ML IV SCH (10:00)
[2018-02-12] MEDS: FOLVITE PO SCH (10:00)
[2018-02-12] MEDS: SODIUM CHLORIDE FLUSH SYRINGE 10 ML IV SCH ×2 (10:00→21:33)
[2018-02-12] MEDS: PEPCID IV SCH (10:00)
--- NOTE | 2018-02-12 11:34 | Progress Note ---
Assessment and Plan Assessment and plan: 37 year old female with past medical history significant for pancreatitis presented to the emergency department complaining of abdominal pain of one-day duration Acute pancreatitis, likely alcohol induced - CT abdomen suggestive - Pain control, bowel rest, IV fluids - Abdominal pain is getting better and patient started on IV fluids Pulmonary nodules -CT angiogram shows no nodules CT abdomen suggestive of portal vein thrombosis and vascular surgery consulted and recommend elquis. Alcohol abuse - Counseling - She on CIWA protocol for DT Dehydration - Resolved Hyponatremia - Continue IV fluid DVT prophylaxis - Lovenox Disposition - Continue inpatient care, continue with clear liquid diet. History Interval history: Patient was seen and evaluated at the bedside, patient still complains abdominal pain 8-9 Hospitalist Physical - Physical exam Narrative exam: Not in cardiopulmonary distress. The patient is obese Vital signs as documented. Head exam is unremarkable. No scleral icterus . Neck is without jugular venous distension, thyromegaly, or carotid bruits. Lungs are clear to auscultation. Cardiac exam reveals regular rate and Rhythm. First and second heart sounds normal. No murmurs, rubs or gallops. Abdominal exam reveals normal bowel sounds, abdominal tenderness. Extremities are nonedematous and both femoral and pedal pulses are normal. 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 No focal weakness. - Constitutional Vitals: Temp Pulse Resp BP Pulse Ox 98.8 F 92 H 18 147/80 98 02/12/18 06:05 02/12/18 06:05 02/12/18 06:05 02/12/18 06:05 02/12/18 06:05 General appearance: Present: no acute distress Results - Labs CBC & Chem 7: 02/12/18 04:00 02/12/18 04:00 Labs: Laboratory Last Values WBC 5.9 K/mm3 (4.5-11.0) 02/12/18 04:00 RBC 3.50 M/mm3 (3.65-5.03) L 02/12/18 04:00 Hgb 12.0 gm/dl (10.1-14.3) 02/12/18 04:00 Hct 33.9 % (30.3-42.9) 02/12/18 04:00 MCV 97 fl (79-97) 02/12/18 04:00 MCH 34 pg (28-32) H 02/12/18 04:00 MCHC 36 % (30-34) H 02/12/18 04:00 RDW 12.9 % (13.2-15.2) L 02/12/18 04:00 Plt Count 192 K/mm3 (140-440) 02/12/18 04:00 Lymph % (Auto) 21.9 % (13.4-35.0) 02/12/18 04:00 [place] % (Auto) 5.8 % (0.0-7.3) 02/12/18 04:00 Eos % (Auto) 4.7 % (0.0-4.3) H 02/12/18 04:00 Baso % (Auto) 0.6 % (0.0-1.8) 02/12/18 04:00 Lymph # 1.3 K/mm3 (1.2-5.4) 02/12/18 04:00 [place] # 0.3 K/mm3 (0.0-0.8) 02/12/18 04:00 Eos # 0.3 K/mm3 (0.0-0.4) 02/12/18 04:00 Baso # 0.0 K/mm3 (0.0-0.1) 02/12/18 04:00 Seg Neutrophils % 67.0 % (40.0-70.0) 02/12/18 04:00 Seg Neutrophils # 4.0 K/mm3 (1.8-7.7) 02/12/18 04:00 Sodium 137 mmol/L (137-145) D 02/12/18 04:00 Potassium 3.8 mmol/L (3.6-5.0) 02/12/18 04:00 Chloride 104.8 mmol/L (98-107) 02/12/18 04:00 Carbon Dioxide 23 mmol/L (22-30) 02/12/18 04:00 Anion Gap 13 mmol/L 02/12/18 04:00 BUN < 1 mg/dL (7-17) L 02/12/18 04:00 Creatinine 0.5 mg/dL (0.7-1.2) L 02/12/18 04:00 Estimated GFR > 60 ml/min 02/12/18 04:00 BUN/Creatinine Ratio 2 % 02/12/18 04:00 Glucose 112 mg/dL (65-100) H 02/12/18 04:00 Hemoglobin A1c 5.5 % (4-6) 02/10/18 21:28 Calcium 8.0 mg/dL (8.4-10.2) L 02/12/18 04:00 Phosphorus 2.00 mg/dL (2.5-4.5) L 02/11/18 06:36 Magnesium 1.30 mg/dL (1.7-2.3) L 02/11/18 06:36 Total Bilirubin 0.80 mg/dL (0.1-1.2) 02/11/18 02:32 AST 93 units/L (5-40) H 02/11/18 02:32 ALT 61 units/L (7-56) H 02/11/18 02:32 Alkaline Phosphatase 62 units/L (35-129) 02/11/18 02:32 Ammonia > 10.0 umol/L (25-60) L 02/11/18 06:36 Total Protein 6.6 g/dL (6.3-8.2) 02/11/18 02:32 Albumin 3.4 g/dL (3.9-5) L 02/11/18 02:32 Albumin/Globulin Ratio 1.1 % 02/11/18 02:32 Amylase 57 units/L (27-131) 02/11/18 06:36 Lipase 119 units/L (13-60) H 02/11/18 06:36 HCG, Qual Negative (Negative) 02/10/18 15:21 Urine Color Yellow (Yellow) 02/10/18 11:35 Urine Turbidity Cloudy (Clear) 02/10/18 11:35 Urine pH 5.0 (5.0-7.0) 02/10/18 11:35 Ur Specific [place] 1.029 (1.003-1.030) 02/10/18 11:35 Urine Protein 100 mg/dl mg/dL (Negative) 02/10/18 11:35 Urine Glucose (UA) Neg mg/dL (Negative) 02/10/18 11:35 Urine Ketones Tr mg/dL (Negative) 02/10/18 11:35 Urine Blood Mod (Negative) 02/10/18 11:35 Urine Nitrite Neg (Negative) 02/10/18 11:35 Urine Bilirubin Neg (Negative) 02/10/18 11:35 Urine Urobilinogen < 2.0 mg/dL (<2.0) 02/10/18 11:35 Ur Leukocyte Esterase Neg (Negative) 02/10/18 11:35 Urine WBC (Auto) 5.0 /HPF (0.0-6.0) 02/10/18 11:35 Urine RBC (Auto) 3.0 /HPF (0.0-6.0) 02/10/18 11:35 U Epithel Cells (Auto) 22.0 /HPF (0-13.0) H 02/10/18 11:35 Urine Bacteria (Auto) 2+ /HPF (Negative) 02/10/18 11:35 Urine Mucus 3+ /HPF 02/10/18 11:35 Hepatitis A IgM Ab Non-reactive (NonReactive) 02/11/18 06:36 Hep Bs Antigen Non-reactive (Negative) 02/11/18 06:36 Hep B Core IgM Ab Non-reactive (NonReactive) 02/11/18 06:36 Hepatitis C Antibody Non-reactive (NonReactive) 02/11/18 06:36
--- NOTE | 2018-02-12 17:19 | Progress Note ---
Assessment and Plan Acute pancreatitis Subpleural atelectasis. Cause possibly related to prior pancreatitis event Recommendations Incentive spirometry Ambulate as tolerated DVT prophylaxis If no additional findings, I will probably monitor the patient clinically. Continue management for pancreatitis, follow-up GI recommendations. Discussed with patient and spouse in detail. All questions answered. We'll sign off at this point, feel free to reconsult if needed Subjective Date of service: 02/12/18 Interval history: Normal events overnight. No respiratory complaints. Some nausea but no vomiting Objective Vital Signs - 12hr 02/12/18 02/12/18 06:05 12:12 Temperature 98.8 F 98.7 F Pulse Rate 92 H 86 Respiratory 18 16 Rate Blood Pressure 147/80 145/87 O2 Sat by Pulse 98 97 Oximetry Constitutional: no acute distress, alert Eyes: non-icteric ENT: oropharynx moist Neck: supple, no lymphadenopathy, no JVD Ascultation: Left: rales (very faint, left base), Bilateral: clear Cardiovascular: regular rate and rhythm Gastrointestinal: normoactive bowel sounds, tender (mid abdomen and epigastric area), non-distended Integumentary: normal Extremities: no cyanosis, no edema, pink and warm Neurologic: normal mental status, non-focal exam, CN II-XII normal, motor strength normal and CBC and BMP: 02/12/18 04:00 02/12/18 04:00 Abnormal lab findings: Abnormal Labs 02/10/18 02/10/18 02/10/18 11:22 11:22 11:35 RBC Hgb 14.7 H MCV 98 H MCH 35 H MCHC 36 H RDW 12.7 L Lymph % (Auto) 12.5 L Eos % (Auto) Lymph # 1.0 L Seg Neutrophils % 82.9 H Sodium 134 L Potassium Chloride 95.3 L Carbon Dioxide BUN Creatinine 0.5 L Glucose 118 H Calcium Phosphorus Magnesium AST 229 H ALT 106 H Ammonia Albumin Lipase U Epithel Cells (Auto) 22.0 H 02/10/18 02/11/18 02/11/18 12:50 02:32 02:32 RBC 3.57 L Hgb MCV 98 H MCH 35 H MCHC 35 H RDW 12.7 L Lymph % (Auto) Eos % (Auto) 5.2 H Lymph # Seg Neutrophils % Sodium 126 L D Potassium 3.0 L D Chloride 90.3 L Carbon Dioxide 21 L BUN 3 L Creatinine 0.5 L Glucose 118 H Calcium 7.6 L Phosphorus Magnesium AST 93 H ALT 61 H Ammonia Albumin 3.4 L Lipase 194 H U Epithel Cells (Auto) 02/11/18 02/11/18 02/11/18 06:36 06:36 06:36 RBC Hgb MCV MCH MCHC RDW Lymph % (Auto) Eos % (Auto) Lymph # Seg Neutrophils % Sodium Potassium Chloride Carbon Dioxide BUN Creatinine Glucose Calcium 7.5 L Phosphorus 2.00 L Magnesium 1.30 L AST ALT Ammonia > 10.0 L Albumin Lipase 119 H U Epithel Cells (Auto) 02/11/18 02/12/18 02/12/18 06:36 04:00 04:00 RBC 3.50 L Hgb MCV MCH 34 H MCHC 36 H RDW 12.9 L Lymph % (Auto) Eos % (Auto) 4.7 H Lymph # Seg Neutrophils % Sodium 130 L Potassium 3.2 L Chloride 96.7 L Carbon Dioxide 18 L BUN 2 L < 1 L Creatinine 0.5 L 0.5 L Glucose 116 H 112 H Calcium 7.2 L 8.0 L Phosphorus Magnesium AST ALT Ammonia Albumin Lipase U Epithel Cells (Auto)
[2018-02-12] MEDS: PEPCID PO SCH (21:22)
[2018-02-13] MEDS: MORPHINE IV PRN ×3 (03:25→13:38)
--- NOTE | 2018-02-13 08:18 | Progress Note ---
Assessment and Plan Assessment and plan: 37 year old female with past medical history significant for pancreatitis presented to the emergency department complaining of abdominal pain of one-day duration Acute pancreatitis, likely alcohol induced - CT abdomen suggestive - Pain control, bowel rest, IV fluids - Abdominal pain is getting better and patient started on IV fluids Pulmonary nodules -CT angiogram shows no nodules CT abdomen suggestive of portal vein thrombosis and vascular surgery consulted and recommend elquis. Alcohol abuse - Counseling - She on CIWA protocol for DT Dehydration - Resolved Hyponatremia - Continue IV fluid DVT prophylaxis - Lovenox Disposition - Continue inpatient care, continue with clear liquid diet. History Interval history: Patient was seen and evaluated at the bedside, patient still complains abdominal pain 8-9 Hospitalist Physical - Physical exam Narrative exam: Not in cardiopulmonary distress. The patient is obese Vital signs as documented. Head exam is unremarkable. No scleral icterus . Neck is without jugular venous distension, thyromegaly, or carotid bruits. Lungs are clear to auscultation. Cardiac exam reveals regular rate and Rhythm. First and second heart sounds normal. No murmurs, rubs or gallops. Abdominal exam reveals normal bowel sounds, abdominal tenderness. Extremities are nonedematous and both femoral and pedal pulses are normal. 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 No focal weakness. - Constitutional Vitals: Temp Pulse Resp BP Pulse Ox 98.6 F 75 20 89/58 96 02/13/18 06:45 02/13/18 06:45 02/13/18 07:41 02/13/18 06:45 02/13/18 06:45 General appearance: Present: no acute distress Results - Labs CBC & Chem 7: 02/12/18 04:00 02/12/18 04:00 Labs: Laboratory Last Values WBC 5.9 K/mm3 (4.5-11.0) 02/12/18 04:00 RBC 3.50 M/mm3 (3.65-5.03) L 02/12/18 04:00 Hgb 12.0 gm/dl (10.1-14.3) 02/12/18 04:00 Hct 33.9 % (30.3-42.9) 02/12/18 04:00 MCV 97 fl (79-97) 02/12/18 04:00 MCH 34 pg (28-32) H 02/12/18 04:00 MCHC 36 % (30-34) H 02/12/18 04:00 RDW 12.9 % (13.2-15.2) L 02/12/18 04:00 Plt Count 192 K/mm3 (140-440) 02/12/18 04:00 Lymph % (Auto) 21.9 % (13.4-35.0) 02/12/18 04:00 [place] % (Auto) 5.8 % (0.0-7.3) 02/12/18 04:00 Eos % (Auto) 4.7 % (0.0-4.3) H 02/12/18 04:00 Baso % (Auto) 0.6 % (0.0-1.8) 02/12/18 04:00 Lymph # 1.3 K/mm3 (1.2-5.4) 02/12/18 04:00 [place] # 0.3 K/mm3 (0.0-0.8) 02/12/18 04:00 Eos # 0.3 K/mm3 (0.0-0.4) 02/12/18 04:00 Baso # 0.0 K/mm3 (0.0-0.1) 02/12/18 04:00 Seg Neutrophils % 67.0 % (40.0-70.0) 02/12/18 04:00 Seg Neutrophils # 4.0 K/mm3 (1.8-7.7) 02/12/18 04:00 Sodium 137 mmol/L (137-145) D 02/12/18 04:00 Potassium 3.8 mmol/L (3.6-5.0) 02/12/18 04:00 Chloride 104.8 mmol/L (98-107) 02/12/18 04:00 Carbon Dioxide 23 mmol/L (22-30) 02/12/18 04:00 Anion Gap 13 mmol/L 02/12/18 04:00 BUN < 1 mg/dL (7-17) L 02/12/18 04:00 Creatinine 0.5 mg/dL (0.7-1.2) L 02/12/18 04:00 Estimated GFR > 60 ml/min 02/12/18 04:00 BUN/Creatinine Ratio 2 % 02/12/18 04:00 Glucose 112 mg/dL (65-100) H 02/12/18 04:00 Hemoglobin A1c 5.5 % (4-6) 02/10/18 21:28 Calcium 8.0 mg/dL (8.4-10.2) L 02/12/18 04:00 Phosphorus 2.00 mg/dL (2.5-4.5) L 02/11/18 06:36 Magnesium 1.30 mg/dL (1.7-2.3) L 02/11/18 06:36 Total Bilirubin 0.80 mg/dL (0.1-1.2) 02/11/18 02:32 AST 93 units/L (5-40) H 02/11/18 02:32 ALT 61 units/L (7-56) H 02/11/18 02:32 Alkaline Phosphatase 62 units/L (35-129) 02/11/18 02:32 Ammonia > 10.0 umol/L (25-60) L 02/11/18 06:36 Total Protein 6.6 g/dL (6.3-8.2) 02/11/18 02:32 Albumin 3.4 g/dL (3.9-5) L 02/11/18 02:32 Albumin/Globulin Ratio 1.1 % 02/11/18 02:32 Amylase 57 units/L (27-131) 02/11/18 06:36 Lipase 36 units/L (13-60) 02/12/18 04:00 HCG, Qual Negative (Negative) 02/10/18 15:21 Urine Color Yellow (Yellow) 02/10/18 11:35 Urine Turbidity Cloudy (Clear) 02/10/18 11:35 Urine pH 5.0 (5.0-7.0) 02/10/18 11:35 Ur Specific [place] 1.029 (1.003-1.030) 02/10/18 11:35 Urine Protein 100 mg/dl mg/dL (Negative) 02/10/18 11:35 Urine Glucose (UA) Neg mg/dL (Negative) 02/10/18 11:35 Urine Ketones Tr mg/dL (Negative) 02/10/18 11:35 Urine Blood Mod (Negative) 02/10/18 11:35 Urine Nitrite Neg (Negative) 02/10/18 11:35 Urine Bilirubin Neg (Negative) 02/10/18 11:35 Urine Urobilinogen < 2.0 mg/dL (<2.0) 02/10/18 11:35 Ur Leukocyte Esterase Neg (Negative) 02/10/18 11:35 Urine WBC (Auto) 5.0 /HPF (0.0-6.0) 02/10/18 11:35 Urine RBC (Auto) 3.0 /HPF (0.0-6.0) 02/10/18 11:35 U Epithel Cells (Auto) 22.0 /HPF (0-13.0) H 02/10/18 11:35 Urine Bacteria (Auto) 2+ /HPF (Negative) 02/10/18 11:35 Urine Mucus 3+ /HPF 02/10/18 11:35 Hepatitis A IgM Ab Non-reactive (NonReactive) 02/11/18 06:36 Hep Bs Antigen Non-reactive (Negative) 02/11/18 06:36 Hep B Core IgM Ab Non-reactive (NonReactive) 02/11/18 06:36 Hepatitis C Antibody Non-reactive (NonReactive) 02/11/18 06:36
[2018-02-13] MEDS: SODIUM CHLORIDE FLUSH SYRINGE 10 ML IV SCH (09:12)
[2018-02-13] MEDS: LOVENOX SUB-Q SCH (09:12)
[2018-02-13] MEDS: D5NS 1,000 ML IV SCH (09:12)
[2018-02-13] MEDS: FOLVITE PO SCH (09:13)
[2018-02-13] MEDS: PEPCID PO SCH (09:13)
[2018-02-13] MEDS ORDERED: VITAMIN B-1 PO SCH (10:00)
--- NOTE | 2018-02-13 10:05 | Progress Note ---
Assessment and Plan 37 yo F with acute pancreatitis, etoh induced Abd u/s on prior admission was unremarkable, gallbladder with questionable trace sludge but no stones Plan: 1. may adv to soft diet 2. IVF - decrease 3. lipase within normal limits yesterday 4. abstinence from etoh Ok to dc home if tolerates soft diet. Will s/o. D/W Dr. Asher Thank you for this consultation, please call with questions or concerns. Subjective Date of service: 02/13/18 Narrative: Pt seen and examined. Feels better today. Still having mild epigastric pain. No n/v. Tolerating clear liquids. No f/c. + loose BMs Objective Vital Signs - 12hr 02/12/18 02/13/18 02/13/18 23:13 03:25 03:55 Temperature 98.2 F Pulse Rate 68 Respiratory 16 20 20 Rate Blood Pressure 140/75 O2 Sat by Pulse 97 Oximetry 02/13/18 02/13/18 06:45 07:41 Temperature 98.6 F Pulse Rate 75 Respiratory 16 20 Rate Blood Pressure 89/58 O2 Sat by Pulse 96 Oximetry - General physical appearance Narrative Exam: Gen: AAOx3. NAD CV: S1, S2+ Resp: even and unlabored Abd: soft, ND, mild discomfort on palpation of epigastrum. no r/r/g Ext: no c/c/e - Labs 02/12/18 04:00 02/12/18 04:00
[2018-02-13 12:39] VITALS: BP 136/81
--- NOTE | 2018-02-13 14:11 | Discharge Summary ---
Providers - Providers Date of Admission: 02/10/18 19:34 Attending physician: USAMA POWERS MD 02/10/18 20:40 Consult to Physician [CONS] Routine Comment: Consulting Provider: WINDY DARLING Physician Instructions: Reason For Exam: acute pancreatitis 02/11/18 09:18 Consult to Physician [CONS] Routine Comment: Consulting Provider: REBA PINTO Physician Instructions: Reason For Exam: Pulmonary nodules on CT 02/11/18 13:00 Consult to Physician [CONS] Routine Comment: Consulting Provider: BHUMIKA SZYMANSKI Physician Instructions: Reason For Exam: portal vein thrombosis Primary care physician: INVENTORY TRANSCRIBER Hospitalization Reason for admission: pancreatitis, portal vein thrombosis Condition: Stable Pertinent studies: CT abdomen and pelvis IMPRESSION: 1. Interval increase in size and number of pulmonary nodules in the left lung base with a large, approximately 2.6 centimeter area of nodular pulmonary consolidation in the left lung base. CT chest is recommended for further evaluation. If there is a clinical concern for pulmonary artery emboli with pulmonary infarcts as the etiology of this finding, CT angiogram chest may be helpful. 2. Findings consistent with pancreatitis. 3. Area of lack of enhancement in the main portal vein which may represent portal vein thrombosis. 4. Evidence of fatty infiltration/steatosis of the liver. 5. No significant change in well-defined approximately 3.4 centimeter x 2.8 centimeter x 3.5 centimeter soft tissue density in the right perineum. CTA chest IMPRESSION: No evidence for pulmonary embolus. Subpleural atelectatic changes or linear scarring in the lower lobes. No suspicious pulmonary nodule Hospital course: 37 year old female with past medical history significant for pancreatitis presented to the emergency department complaining of abdominal pain of one-day duration. patient has been drinking alcohol Acute pancreatitis, likely alcohol induced - CT abdomen suggestive of acute pancreatitis - Patient was treated with Pain meds, bowel rest, IV fluids - patient's abdominal pain was getting better and patient tolerated soft diet, lipase level normalized Pulmonary nodules -CT angiogram shows no nodules CT abdomen suggestive of portal vein thrombosis and vascular surgery consulted and recommended elquis for 3 months. Patient was treated for alcohol withdrawal according to CIWA protocol. patient was extensively counselled about cessation of alcohol. Patient was hemodynamically stable at the time of discharge. Appropriate medication scripts and discount cards were given. Patient's concerns and questions were addressed at the bedside. Disposition: [id number]-01 TO HOME OR SELFCARE Time spent for discharge: 32 minutes - Discharge Diagnoses (1) Acute pancreatitis Status: Acute Qualifiers: Pancreatitis type: alcohol induced Acute pancreatitis complication: unspecified Qualified Code(s): K85.20 - Alcohol induced acute pancreatitis without necrosis or infection (2) Portal vein thrombosis Status: Acute (3) Transaminitis Status: Acute (4) EtOH dependence Status: Chronic Qualifiers: Substance use status: unspecified alcohol-induced disorder Qualified Code(s ): F10.29 - Alcohol dependence with unspecified alcohol-induced disorder (5) Dehydration Status: Acute (6) Hyperkalemia Status: Acute Core Measure Documentation - Palliative Care Palliative Care/ Comfort Measures: Not Applicable - Core Measures Any of the following diagnoses?: none Exam - Physical Exam Narrative exam: Not in cardiopulmonary distress. The patient is obese Vital signs as documented. Head exam is unremarkable. No scleral icterus . Neck is without jugular venous distension, thyromegaly, or carotid bruits. Lungs are clear to auscultation. Cardiac exam reveals regular rate and Rhythm. First and second heart sounds normal. No murmurs, rubs or gallops. Abdominal exam reveals normal bowel sounds, no abdominal tenderness. Extremities are nonedematous and both femoral and pedal pulses are normal. 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 No focal weakness. - Constitutional Vitals: Temp Pulse Resp BP Pulse Ox 98.7 F 64 16 136/81 97 02/13/18 12:06 02/13/18 12:06 02/13/18 12:06 02/13/18 12:06 02/13/18 12:06 Plan Activity: no restrictions Weight Bearing Status: Full Weight Bearing Diet: advance as tolerated Follow up with: ARYAN AGARWAL MD [Primary Care Provider] - 3-5 Days CESIA RAVI MD [Staff Physician] - 05/16/18 (For evaluating the portal vein thrombosis after 3 months of eliquis.) Prescriptions: Apixaban [Eliquis] 5 mg PO BID #60 tablet oxyCODONE /ACETAMINOPHEN [Percocet 5/325] 1 tab PO Q6HR PRN #12 tablet PRN Reason: Pain
== END 2018-02-13 18:15 | disposition home or self-care (01) | DRG 441 ==
LOC: ED 10:26 → 3A 19:34
PROVIDERS: ADMIT Internal Medicine; ATTEND Internal Medicine
DX: I81 Portal vein thrombosis (principal); K85.20 Alcohol induced acute pancreatitis without necrosis or infection; K85.90 Acute pancreatitis without necrosis or infection, unspecified; E87.1 Hypo-osmolality and hyponatremia; J98.11 Atelectasis; E86.0 Dehydration; F10.20 Alcohol dependence, uncomplicated; E66.9 Obesity, unspecified; E87.5 Hyperkalemia; R91.1 Solitary pulmonary nodule; Z91.013 Allergy to seafood; Z90.49 Acquired absence of other specified parts of digestive tract; Z87.891 Personal history of nicotine dependence; Z82.49 Family history of ischemic heart disease and other diseases of the circulatory system; Z71.41 Alcohol abuse counseling and surveillance of alcoholic; Z68.32 Body mass index [BMI] 32.0-32.9, adult
CPT/HCPCS: 36415; 71275; 74177; 80048; 80053; 80074; 81001; 82140; 82150; 82310; 83036; 83690; 83735; 84100; 84703; 85025; J1650; J2270; J2405; J3010; J3411; J3475; J7030; J7040; J7042; Q9967